=== PATIENT | male | born 1970 | race Caucasian/White ===

== ENCOUNTER 2020-09-27 10:46 | Inpatient (IN) | payer OTHER ==
[2020-09-27] MEDS ORDERED: Diphtheria,Pertussis(Acell),Tetanus Vaccine 0.5 ML Syringe IM ONE (11:35)
--- NOTE | 2020-09-27 11:40 | EDM.PDOC ---
ED HPI GENERAL MEDICAL PROBLEM - General Chief Complaint: Lower Extremity Injury/Pain Stated Complaint: RIGHT SECOND TOE IS BLACK Time Seen by Provider: 09/27/20 11:25 Source of Information: Reports: Patient, Old Records, RN History Limitations: Reports: No Limitations - History of Present Illness INITIAL COMMENTS - FREE TEXT/NARRATIVE: 50 yo male diabetic presents with an injury to his R 2nd toe. He has neuropathy and as a result was not aware until sometime this morning that he had injured it. He thinks when he looked at his feet yesterday it looked normal. Unknown last tetanus. Has not missed any of his home meds including his metoprolol. His BS last night was 185. He was tested yesterday in the clinic for Covid, the results are pending. Covid test done for nonspecific sx's including fever. No one looked at this feet at that time. 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) - Related Data Allergies Allergy/AdvReac Type Severity Reaction Status Date / Time No Known Allergies Allergy Verified 09/27/20 11:23 Home Meds: Home Meds Aspirin 81 mg PO DAILY 09/27/20 [History] Cholecalciferol (Vitamin D3) [Vitamin D] 2,000 unit PO DAILY 09/27/20 [History] Docusate Sodium [Colace] 100 mg PO DAILY 09/27/20 [History] Dulaglutide [Trulicity] 1.5 mg SQ WEEKLY 09/27/20 [History] Furosemide 20 mg PO DAILY 09/27/20 [History] Glimepiride 1 mg PO DAILY 09/27/20 [History] Metoprolol Succinate 200 mg PO DAILY 09/27/20 [History] Spironolactone [Aldactone] 25 mg PO DAILY 09/27/20 [History] allopurinoL [Zyloprim] 100 mg PO DAILY 09/27/20 [History] amLODIPine [Norvasc] 10 mg PO DAILY 09/27/20 [History] atorvaSTATin [Lipitor] 80 mg PO BEDTIME 09/27/20 [History] lisinopriL [Lisinopril] 20 mg PO DAILY 09/27/20 [History] Past Medical History HEENT History: Reports: Impaired Vision Cardiovascular History: Reports: Hypertension, Other (See Below) Other Cardiovascular History: cabg Genitourinary History: Reports: Diabetic Nephropathy, Other (See Below) Other Genitourinary History: ckd Endocrine/Metabolic History: Reports: Diabetes, Type II - Infectious Disease History Infectious Disease History: Reports: Chicken Pox Social & Family History - Tobacco Use Tobacco Use Status *Q: Current Every Day Tobacco User Years of Tobacco use: 30 Packs/Tins Daily: 0.5 Used Tobacco, but Quit: Yes Month/Year Tobacco Last Used: july 2020 - Caffeine Use Caffeine Use: Reports: None - Recreational Drug Use Recreational Drug Use: No Review of Systems - Review of Systems Review Of Systems: See Below Constitutional: Reports: No Symptoms Musculoskeletal: Reports: Other (denies pain) Skin: Reports: Wound (R 2nd toe distally) Neurological: Reports: Numbness (decreased sensation of both feet chronically) ED EXAM, GENERAL - Physical Exam Exam: See Below Exam Limited By: No Limitations General Appearance: Alert, WD/WN, No Apparent Distress Cardiovascular: Tachycardia Extremities: Non-Tender, Other (distal R 2nd toe has a laceration with no active bleeding and ecchymosis of the distal toe. No deformity. ). No: Normal Inspection, Normal Range of Motion Neurological: Alert, Oriented, CN II-XII Intact, Normal Cognition, No Motor/Sensory Deficits Psychiatric: Normal Affect, Normal Mood Skin Exam: Warm, Dry, No Rash, Ecchymosis (distal 1/2 of the R 2nd toe.), Wound/Incision (laceration of the distal R 2nd toe. ). No: Intact, Normal Color ED TRAUMA EXTREMITY PROCEDURES - Additional/Other Procedure(s) Other (Free Text) Procedure(s): Affected R 2nd toe anesth with 5 ml of 2% lido via digital block. The toe was then washed/irrigated with sterile saline. The toe nail was found to be loose and removed. The necrotic skin on the end of the toe was debrided. No purulence was noted. Course - Vital Signs Text/Narrative:: Dr. Jeronimo called @ 1318h Last Recorded V/S: Last Vital Signs Temp 36.4 C 09/27/20 12:26 Pulse 112 H 09/27/20 12:26 Resp 23 H 09/27/20 12:26 BP 135/82 09/27/20 12:26 Pulse Ox 99 09/27/20 12:26 - Orders/Labs/Meds Orders: Active Orders 24 hr Category Date Time Status Cardiac Monitoring [RC] .As Directed Care 09/27/20 11:33 Active Vaccines to be Administered [RC] PER UNIT ROUTINE Care 09/27/20 11:35 Active CULTURE BLOOD [BC] Stat Lab 09/27/20 13:17 Ordered CULTURE BLOOD [BC] Stat Lab 09/27/20 13:18 Ordered Lactated Ringers [Ringers, Lactated] 1,000 ml Med 09/27/20 13:00 Active IV ASDIRECTED Medication Orders Lactated Ringer's (Ringers, Lactated) 1,000 mls @ 1,000 mls/hr IV ASDIRECTED KIRK Last Admin: 09/27/20 12:58 Dose: 1,000 mls/hr Documented by: PERRY Labs: Laboratory Tests 09/27/20 09/27/20 09/27/20 Range/Units 12:32 12:32 12:32 WBC 11.8 H (4.5-11.0) K/uL RBC 5.20 (4.30-5.90) M/uL Hgb 16.0 H (12.0-15.0) g/dL Hct 48.2 (40.0-54.0) % MCV 93 (80-98) fL MCH 31 (27-31) pg MCHC 33 (32-36) % Plt Count 178 (150-400) K/uL Sodium 136 L (140-148) mmol/L Potassium 5.1 (3.6-5.2) mmol/L Chloride 100 (100-108) mmol/L Carbon Dioxide 27 (21-32) mmol/L Anion Gap 14.1 H (5.0-14.0) mmol/L BUN 30 H (7-18) mg/dL Creatinine 2.1 H (0.8-1.3) mg/dL Est Cr Clr Drug Dosing 46.19 mL/min Estimated GFR (MDRD) 34 L (>60) Glucose 246 H (74-106) mg/dL Lactic Acid (0.4-2.0) mmol/L Calcium 9.1 (8.5-10.1) mg/dL Troponin I < 0.017 (0.000-0.056) ng/mL C-Reactive Protein 9.18 H (0.0-0.3) mg/dL 09/27/20 Range/Units 12:49 WBC (4.5-11.0) K/uL RBC (4.30-5.90) M/uL Hgb (12.0-15.0) g/dL Hct (40.0-54.0) % MCV (80-98) fL MCH (27-31) pg MCHC (32-36) % Plt Count (150-400) K/uL Sodium (140-148) mmol/L Potassium (3.6-5.2) mmol/L Chloride (100-108) mmol/L Carbon Dioxide (21-32) mmol/L Anion Gap (5.0-14.0) mmol/L BUN (7-18) mg/dL Creatinine (0.8-1.3) mg/dL Est Cr Clr Drug Dosing mL/min Estimated GFR (MDRD) (>60) Glucose (74-106) mg/dL Lactic Acid 1.9 (0.4-2.0) mmol/L Calcium (8.5-10.1) mg/dL Troponin I (0.000-0.056) ng/mL C-Reactive Protein (0.0-0.3) mg/dL Meds: Medications Generic Name Dose Route Start Last Admin Trade Name Freq PRN Reason Stop Dose Admin Lactated Ringer's 1,000 mls @ 1,000 mls/hr 09/27/20 13:00 09/27/20 12:58 Ringers, Lactated IV 1,000 mls/hr ASDIRECTED KIRK Administration Discontinued Medications Generic Name Dose Route Start Last Admin Trade Name Freq PRN Reason Stop Dose Admin Diphtheria/Tetanus/Acell Pertussis 0.5 ml 09/27/20 11:35 09/27/20 12:02 Diphtheria,Pertussis(Acell),Tetanus Vaccine 0.5 Ml Syringe IM 09/27/20 11:36 0.5 ml .ONCE ONE Administration Lidocaine HCl 5 ml 09/27/20 12:10 09/27/20 12:25 Lidocaine 2% 20 Ml Mdv SUBCUT 09/27/20 12:11 5 ml ONETIME ONE Administration - Radiology Interpretation Free Text/Narrative:: R 2nd toe X-ray-no fx seen Departure - Departure Time of Disposition: 13:40 Disposition: Admitted As Inpatient 66 Condition: Fair Clinical Impression: Infected blister of second toe, Hyperglycemia, Elevated C-reactive protein (CRP) - Discharge Information Referrals: Sonam Cano MD [Primary Care Provider] - Forms: ED Department Discharge Sepsis Event Note (ED) - Focused Exam Vital Signs: Vital Signs Temp Pulse Resp BP Pulse Ox 09/27/20 12:26 36.4 C 112 H 23 H 135/82 99 09/27/20 11:48 112 H 23 H 135/82 99 09/27/20 11:05 36.4 C 122 H 16 103/58 L 100 - My Orders Last 24 Hours: My Active Orders 09/27/20 11:33 Cardiac Monitoring [RC] .As Directed 09/27/20 11:35 Vaccines to be Administered [RC] PER UNIT ROUTINE 09/27/20 13:00 Lactated Ringers [Ringers, Lactated] 1,000 ml IV ASDIRECTED 09/27/20 13:17 CULTURE BLOOD [BC] Stat 09/27/20 13:18 CULTURE BLOOD [BC] Stat - Assessment/Plan Last 24 Hours: My Active Orders 09/27/20 11:33 Cardiac Monitoring [RC] .As Directed 09/27/20 11:35 Vaccines to be Administered [RC] PER UNIT ROUTINE 09/27/20 13:00 Lactated Ringers [Ringers, Lactated] 1,000 ml IV ASDIRECTED 09/27/20 13:17 CULTURE BLOOD [BC] Stat 09/27/20 13:18 CULTURE BLOOD [BC] Stat
[2020-09-27] MEDS ORDERED: Lidocaine 2% 20 ML MDV SUBCUT ONE (12:10)
--- NOTE | 2020-09-27 12:35 | CR ---
Toes Second Digit Rt T6 CLINICAL HISTORY: Pain and swelling and bruising second toe FINDINGS: There is soft tissue swelling of the second toe. No fractures identified. There are diffuse degenerative changes and hammertoe deformities. IMPRESSION: Soft tissue swelling and tissue disruption at the second toe. No underlying bony lesion
[2020-09-27] MEDS ORDERED: Lactated Ringers 1,000 ML IV SCH (13:00)
[2020-09-27] MEDS ORDERED: Bacitracin Oint 1 GM U/D Packet TOP ONE (13:32)
[2020-09-27] MEDS ORDERED: 50% Dextrose in Water 50 ML Syringe IVPUSH PRN (14:14)
[2020-09-27] MEDS ORDERED: Glucagon,Human Recombinant 1 MG Vial IM PRN (14:14)
[2020-09-27] MEDS ORDERED: Insulin Lispro 100 Unit/ML 3 ML KwikPen SUBCUT SCH (14:15)
--- NOTE | 2020-09-27 14:26 | PCM.HP.2 ---
H&P History of Present Illness - General Date of Service: 09/27/20 Admit Problem/Dx: Admission Diagnosis/Problem Admission Diagnosis/Problem Sepsis seoncdary to Right 2nd Toe infection Source of Information: Patient, Family () History Limitations: Reports: No Limitations - History of Present Illness Initial Comments - Free Text/Narative: Mr. Carlton is a 50-year-old male with past medical history significant for uncontrolled diabetes mellitus type 2, essential hypertension, HFrEF Systolic and diastolic, coronary artery disease status post CABG who presents today with mild signs of sepsis including tachycardia and tachypnea. He denies respiratory symptoms, GI symptoms, and urinary symptoms related to infection. He has a lesion and redness on the second toe on the right that appears to be gangrenous with areas of redness that extend to the base of the toe. He admits to having peripheral neuropathy of the feet with no sensation in the tips of the toes, decreased sensation at the bottom of the toes, and good sensation at the metacarpals. He does not look at his feet and does not remember the last time he saw his toe, when in the clinic a few days ago his feet were not examined. He does not remember injuring that toe. He admits that his blood sugars are not controlled at home. He was recently started on Trulicity and he had his most recent shot in this past week. The past few days he has not been feeling well and has had subjective fevers. He is a patient of the [facility] next- door. He is not currently insulin-dependent and only takes oral medications besides the Trulicity once a week injection. He has a history of gout and takes allopurinol. His hypertension and heart failure are moderately controlled and treated with spironolactone, furosemide, lisinopril, metoprolol, and amlodipine. He is taking atorvastatin 80 mg for coronary artery disease tertiary prevention. He admits to having psoriasis but does not take a medication for this. His is at bedside with him and was able to answer some questions. A few days ago he was seen by his clinic for malaise and low-grade fever subjectively at home. At that time he was tested for Covid and those results are pending. In the ER the toe was debrided. He was having tachycardia in the low 110s and tachypnea. His tachycardia may have been falsely low as he takes Toprol 200 mg daily. He was started on IV fluids. An x-ray of his foot was taken that did not show signs of osteomyelitis or subcutaneous infection. He will be admitted for possible sepsis secondary to right second toe gangrene with cellulitis. Onset of Symptoms: Reports: Unknown/Unsure Location: Reports: Lower Extremity, Right - Related Data Allergies/Adverse Reactions: Allergies Allergy/AdvReac Type Severity Reaction Status Date / Time No Known Allergies Allergy Verified 09/27/20 11:23 Home Medications: Home Meds Aspirin 81 mg PO DAILY 09/27/20 [History] Cholecalciferol (Vitamin D3) [Vitamin D] 2,000 unit PO DAILY 09/27/20 [History] Docusate Sodium [Colace] 100 mg PO DAILY 09/27/20 [History] Dulaglutide [Trulicity] 1.5 mg SQ WEEKLY 09/27/20 [History] Furosemide 20 mg PO DAILY 09/27/20 [History] Glimepiride 1 mg PO DAILY 09/27/20 [History] Metoprolol Succinate 200 mg PO DAILY 09/27/20 [History] Spironolactone [Aldactone] 25 mg PO DAILY 09/27/20 [History] allopurinoL [Zyloprim] 100 mg PO DAILY 09/27/20 [History] amLODIPine [Norvasc] 10 mg PO DAILY 09/27/20 [History] atorvaSTATin [Lipitor] 80 mg PO BEDTIME 09/27/20 [History] lisinopriL [Lisinopril] 20 mg PO DAILY 09/27/20 [History] Past Medical History - Past Health History Medical/Surgical History: Denies Medical/Surgical History HEENT History: Reports: Impaired Vision Cardiovascular History: Reports: High Cholesterol, Hypertension, Other (See Below) Other Cardiovascular History: cabg Genitourinary History: Reports: Diabetic Nephropathy, Other (See Below) Other Genitourinary History: ckd Neurological History: Reports: Neuropathy, Peripheral (bilateral lower extremities) Endocrine/Metabolic History: Reports: Diabetes, Type II Dermatologic History: Reports: Psoriasis - Infectious Disease History Infectious Disease History: Reports: Chicken Pox - Past Surgical History Cardiovascular Surgical History: Reports: Coronary Artery Bypass Social & Family History - Tobacco Use Tobacco Use Status *Q: Current Every Day Tobacco User Years of Tobacco use: 1 Packs/Tins Daily: 0.2 Used Tobacco, but Quit: Yes Month/Year Tobacco Last Used: july Second Hand Smoke Exposure: No - Caffeine Use Caffeine Use: Reports: None - Recreational Drug Use Recreational Drug Use: No - Living Situation & Occupation Living situation: Reports: H&P Review of Systems - Review of Systems: Review Of Systems: See Below General: Reports: Fever, Malaise HEENT: Reports: Glasses, Visual Changes (needs to see looper fixer). Denies: Headaches, Sinus Congestion, Sore Throat Pulmonary: Denies: Shortness of Breath, Wheezing, Cough, Sputum Cardiovascular: Denies: Chest Pain, Palpitations, Edema Gastrointestinal: Denies: Abdominal Pain, Constipation, Diarrhea Genitourinary: Denies: Dysuria, Frequency, Urgency Musculoskeletal: Reports: No Symptoms, Other (psoriasis lesions ) Neurological: Denies: Confusion, Headache Exam - Exam Exam: See Below - Vital Signs Vital Signs: Last Vital Signs Temp 100.9 F H 09/27/20 13:43 Pulse 103 H 09/27/20 13:50 Resp 27 H 09/27/20 13:50 BP 98/64 09/27/20 13:50 Pulse Ox 97 09/27/20 13:43 Weight: 232 lb 9.403 oz - Exam Quality Assessment: DVT Prophylaxis. No: Supplemental Oxygen General: Alert, Oriented, Cooperative HEENT: Conjunctiva Clear, EOMI, Hearing Intact, Mucosa Moist & [place] Lungs: Clear to Auscultation, Normal Respiratory Effort, Other (tachypnea) Cardiovascular: Regular Rhythm, Tachycardia GI/Abdominal Exam: Normal Bowel Sounds, Soft, Non-Tender, No Distention Extremities: Other (Right second toe- debrided, has areas of black necrotic tissue, area surrounding the debrided area is purple/red with demarcation at the base of the toe, the other toes of the foot appear within normal limits). No: Pedal Edema Skin: Warm, Dry, Intact, Other (scattered psoriasis lesions on upper and lower extremities) Neurological: Other (has decreased sensation to light touch in the tips of the toes bilaterally gradually increasing to full sensation at the level of the metacarpals) Neuro Extensive - Mental Status: Alert, Oriented x3, Normal Mood/Affect, Normal Cognition Psychiatric: Alert, Normal Affect, Normal Mood - Patient Data Lab Results Last 24 hrs: Laboratory Results - last 24 hr 09/27/20 09/27/20 09/27/20 Range/Units 12:32 12:32 12:32 WBC 11.8 H (4.5-11.0) K/uL RBC 5.20 (4.30-5.90) M/uL Hgb 16.0 H (12.0-15.0) g/dL Hct 48.2 (40.0-54.0) % MCV 93 (80-98) fL MCH 31 (27-31) pg MCHC 33 (32-36) % Plt Count 178 (150-400) K/uL Sodium 136 L (140-148) mmol/L Potassium 5.1 (3.6-5.2) mmol/L Chloride 100 (100-108) mmol/L Carbon Dioxide 27 (21-32) mmol/L Anion Gap 14.1 H (5.0-14.0) mmol/L BUN 30 H (7-18) mg/dL Creatinine 2.1 H (0.8-1.3) mg/dL Est Cr Clr Drug Dosing 46.19 mL/min Estimated GFR (MDRD) 34 L (>60) Glucose 246 H (74-106) mg/dL Lactic Acid (0.4-2.0) mmol/L Calcium 9.1 (8.5-10.1) mg/dL Troponin I < 0.017 (0.000-0.056) ng/mL C-Reactive Protein 9.18 H (0.0-0.3) mg/dL Urine Color (YELLOW) Urine Appearance (CLEAR) Urine pH (5.0-8.0) Ur Specific [place] (1.008-1.030) Urine Protein (NEGATIVE) mg/dL Urine Glucose (UA) (NEGATIVE) mg/dL Urine Ketones (NEGATIVE) mg/dL Urine Occult Blood (NEGATIVE) Urine Nitrite (NEGATIVE) Urine Bilirubin (NEGATIVE) Urine Urobilinogen (0.2-1.0) EU/dL Ur Leukocyte Esterase (NEGATIVE) Urine RBC (0-5) Urine WBC (0-5) Ur Epithelial Cells Amorphous Sediment Urine Bacteria Urine Mucus Urine Other 09/27/20 09/27/20 Range/Units 12:49 13:59 WBC (4.5-11.0) K/uL RBC (4.30-5.90) M/uL Hgb (12.0-15.0) g/dL Hct (40.0-54.0) % MCV (80-98) fL MCH (27-31) pg MCHC (32-36) % Plt Count (150-400) K/uL Sodium (140-148) mmol/L Potassium (3.6-5.2) mmol/L Chloride (100-108) mmol/L Carbon Dioxide (21-32) mmol/L Anion Gap (5.0-14.0) mmol/L BUN (7-18) mg/dL Creatinine (0.8-1.3) mg/dL Est Cr Clr Drug Dosing mL/min Estimated GFR (MDRD) (>60) Glucose (74-106) mg/dL Lactic Acid 1.9 (0.4-2.0) mmol/L Calcium (8.5-10.1) mg/dL Troponin I (0.000-0.056) ng/mL C-Reactive Protein (0.0-0.3) mg/dL Urine Color Yellow (YELLOW) Urine Appearance Slightly cloudy A (CLEAR) Urine pH 5.0 (5.0-8.0) Ur Specific [place] 1.025 (1.008-1.030) Urine Protein Negative (NEGATIVE) mg/dL Urine Glucose (UA) 100 H (NEGATIVE) mg/dL Urine Ketones Negative (NEGATIVE) mg/dL Urine Occult Blood Trace-intact H (NEGATIVE) Urine Nitrite Negative (NEGATIVE) Urine Bilirubin Negative (NEGATIVE) Urine Urobilinogen 0.2 (0.2-1.0) EU/dL Ur Leukocyte Esterase Negative (NEGATIVE) Urine RBC 0-5 (0-5) Urine WBC 5-10 H (0-5) Ur Epithelial Cells Moderate Amorphous Sediment Not seen Urine Bacteria Few Urine Mucus Moderate Urine Other Result Diagrams: 09/27/20 12:32 09/27/20 12:32 Sepsis Event Note - Evaluation Sepsis Screening Result: Possible Sepsis Risk Current Stage of Sepsis: Sepsis Possible Source of Sepsis: Skin/Soft Tissue - Focused Exam Sepsis Event Note Statement: Focused Sepsis Exam Completed Vital Signs: Vital Signs Temp Pulse Resp BP Pulse Ox 09/27/20 13:50 103 H 27 H 98/64 09/27/20 13:43 100.9 F H 101 H 18 106/75 97 09/27/20 13:24 103 H 22 H 96/60 09/27/20 12:26 97.5 F 112 H 23 H 135/82 99 09/27/20 11:48 112 H 23 H 135/82 99 09/27/20 11:05 97.5 F 122 H 16 103/58 L 100 Respiratory Effort Without Exertion: Other (see below) (tachypnea) Heart Sounds: Other (see below) (tachycardia) Pulse Description: 2+ Normal Peripheral Pulse Location: Radial Skin Exam (Focused Sepsis): Unremarkable Date Exam was Performed: 09/27/20 Time Exam was Performed: 15:00 Problem List Initiated/Reviewed/Updated: Yes Orders Last 24hrs: Active Orders 24 hr Category Date Time Status Patient Status [ADT] Routine ADT 09/27/20 13:43 Active Antiembolic Devices [RC] .Routine Care 09/27/20 13:53 Active Bedrest Bedside Commode [RC] ASDIRECTED Care 09/27/20 13:51 Active Blood Glucose Check, Bedside [RC] TIDAC Care 09/27/20 14:12 Ordered Cardiac Monitoring [RC] .As Directed Care 09/27/20 11:33 Active Communication Order [RC] PER UNIT ROUTINE Care 09/27/20 14:12 Ordered Communication Order [RC] PER UNIT ROUTINE Care 09/27/20 14:12 Ordered Communication Order [RC] PRN Care 09/27/20 14:12 Ordered Communication Order [RC] PRN Care 09/27/20 14:12 Ordered Diabetes Education [RC] Click to Edit Care 09/27/20 14:12 Ordered Notify Provider [RC] PRN Care 09/27/20 14:12 Ordered Oxygen Therapy [RC] PRN Care 09/27/20 13:43 Active VTE/DVT Education [RC] Click to Edit Care 09/27/20 13:53 Active Vaccines to be Administered [RC] PER UNIT ROUTINE Care 09/27/20 11:35 Active Vital Signs [RC] Q4H Care 09/27/20 13:43 Active Heart Healthy Diet [DIET] Diet 09/27/20 Dinner Active CULTURE BLOOD [BC] Stat Lab 09/27/20 13:45 Ordered CULTURE BLOOD [BC] Stat Lab 09/27/20 13:45 Ordered Aspirin Med 09/28/20 09:00 Ordered 81 mg PO DAILY Cholecalciferol (Vitamin D3) [Vitamin D] Med 09/28/20 09:00 Ordered 2,000 unit PO DAILY Dextrose 50% in Water Med 09/27/20 14:14 Ordered 50 ml IVPUSH ASDIRECTED PRN Docusate Sodium [Colace] Med 09/28/20 09:00 Ordered 100 mg PO DAILY Furosemide [Lasix] Med 09/28/20 09:00 Ordered 20 mg PO DAILY Glucagon,Human Recombinant [GlucaGen] Med 09/27/20 14:14 Ordered 1 mg IM ASDIRECTED PRN Insulin Glarg,Human.Rec.Analog [LantUS Solostar] Med 09/27/20 21:00 Ordered 30 units SUBCUT BEDTIME Insulin Lispro [HumaLOG] Med 09/27/20 14:15 Ordered See Protocol SUBCUT ASDIRECTED Lactated Ringers [Ringers, Lactated] 1,000 ml Med 09/27/20 13:00 Active IV ASDIRECTED Metoprolol Succinate [Metoprolol Succinate] Med 09/28/20 09:00 Ordered 200 mg PO DAILY Spironolactone [Aldactone] Med 09/28/20 09:00 Ordered 25 mg PO DAILY allopurinoL [Zyloprim] Med 09/28/20 09:00 Ordered 100 mg PO DAILY amLODIPine [Norvasc] Med 09/28/20 09:00 Ordered 10 mg PO DAILY atorvaSTATin [Lipitor] Med 09/27/20 21:00 Ordered 80 mg PO BEDTIME lisinopriL [Prinivil] Med 09/28/20 09:00 Ordered 20 mg PO DAILY DVT/VTE Prophylaxis Reflex [OM.PC] Per Unit Routine Oth 09/27/20 13:53 Ordered Resuscitation Status Routine Resus Stat 09/27/20 13:43 Ordered Medication Orders Allopurinol (Allopurinol 100 Mg Tab) 100 mg PO DAILY [facility]K Amlodipine Besylate (Amlodipine 5 Mg Tab) 10 mg PO DAILY [facility]K Aspirin (Aspirin 81 Mg Tab.Chew) 81 mg PO DAILY [facility] Dextrose/Water (50% Dextrose In Water 50 Ml Syringe) 50 ml IVPUSH ASDIRECTED PRN PRN Reason: Hypoglycemia Docusate Sodium (Docusate Sodium 100 Mg Cap) 100 mg PO DAILY [facility] Furosemide (Furosemide 20 Mg Tab) 20 mg PO DAILY [facility] Glucagon (Glucagon,Human Recombinant 1 Mg Vial) 1 mg IM ASDIRECTED PRN PRN Reason: Hypoglycemia Lactated Ringer's (Ringers, Lactated) 1,000 mls @ 1,000 mls/hr IV ASDIRECTED [facility] Last Admin: 09/27/20 12:58 Dose: 1,000 mls/hr Documented by: PERRY Insulin Glargine (Insulin Glargine,Human Rec. Analog 100 Units/Ml 3 Ml Pen) 30 units SUBCUT BEDTIME KIRK Insulin Human Lispro (Insulin Lispro 100 Unit/Ml 3 Ml Kwikpen) 0 unit SUBCUT ASDIRECTED [facility]; Protocol Lisinopril (Lisinopril 20 Mg Tab) 20 mg PO DAILY [facility] Non-Formulary Medication (Atorvastatin [Lipitor]) 80 mg PO BEDTIME [facility]IRK Non-Formulary Medication (Cholecalciferol (Vitamin D3) [Vitamin D]) 2,000 unit PO DAILY [facility] Non-Formulary Medication (Metoprolol Succinate [Metoprolol Succinate]) 200 mg PO DAILY [facility] Spironolactone (Spironolactone 25 Mg Tab) 25 mg PO DAILY [facility] Assessment/Plan Comment:: Sepsis Secondary to Right 2nd Toe Infection -Had tachycardia and tachypnea on arrival, low-grade fever when moving to the floor -Cefepime 2 mg every 12 and vancomycin per pharmacy protocol were initiated -Fluids were started with normal saline at 100 mL/h-he was given 2 boluses in the ED -Vitals q4h -Blood cultures drawn through the ED, will await results -Getting urine cultures to rule out urinary tract infection, patient does not have signs and symptoms of urinary tract infection -Tylenol as needed for fever Dry gangrene with surrounding cellulitis of the right second toe-likely secondary to injury in the setting of diabetic peripheral neuropathy, possibly secondary to vascular insufficiency in the setting of arterial vascular disease -Management per above, along with management for diabetes mention below -Need dressing change in the morning for the toe Uncontrolled diabetes mellitus type 2 with peripheral neuropathy -Blood sugars in the ED were 246, patient states his blood sugars have not been controlled at home with an average blood sugar of 185 -Home oral medications will be held, in the past week has received a Trulicity injection -Started on 30 units of glargine at bedtime and sliding scale insulin low-dose with meals -Monitoring blood sugars 3 times daily AC -Goal blood sugar is under 180 to facilitate healing -A1c has been ordered and drawn Heart failure with reduced ejection fraction, diastolic and systolic secondary to coronary artery disease status post CABG and hypertensive cardiomyopathy -Last echo available was done on 08/10/2016: EF 40 to 45% which was improved from an echo done on 05/14/2016 showing an EF of 20 to 25% -Continue home medications: Renal lactone 25 mg, frusemide 20 mg, Toprol 200 mg, daily aspirin, senna pill 20 mg -We will monitor for signs and symptoms of fluid overload while on fluids for treatment of sepsis, will obtain chest x-ray if necessary -Continue home med of atorvastatin 80 mg Essential hypertension -Restarting home med amlodipine 10 mg Gout -Restarting home med of allopurinol 100 mg Psoriasis -He has typical lesions on the upper and lower extremities concentrated in the area of the anterior lower leg and hands -He does not take medications for this Obesity class I -BMI: 32 -Will be on an 1800 calorie/day diet for diabetes and obesity CODE STATUS: Full code VTE prophylaxis: SCDs on the right contraindicated, enoxaparin Diet: Heart healthy diet, 1800 bebeto/day GI prophylaxis: Not indicated at this time Plan: Mr. Carlton will be admitted to the floor for sepsis secondary to toe infection. Will be monitored closely and if sepsis progresses he will be moved to the ICU. He will remain on IV antibiotics and IV fluids. Plan for dressing change of toe in the morning. Closely monitor for signs and symptoms of fluid overload. Using long acting insulin at bedtime with low-dose sliding scale insulin to maintain a blood glucose less than 180. Disposition: I anticipate he will go home after hospital stay. Dali Jeronimo DO - Mortality Measure Prognosis:: Good
[2020-09-27] MEDS ORDERED: Acetaminophen 325 MG Tab PO PRN (14:28)
[2020-09-27] MEDS: Sodium Chloride 0.9% 1,000 ML IV SCH (14:53)
[2020-09-27] MEDS ORDERED: Vancomycin 1 GM SDV IV SCH (15:00)
[2020-09-27] MEDS: Cefepime 2 GM in Sodium Chloride 0.9% 50 ML IV SCH (15:05)
[2020-09-27] MEDS ORDERED: VANCOMYCIN IV ONE (16:00)
[2020-09-27] MEDS ORDERED: SODIUM CHLORIDE 0.9% IV ONE (16:00)
[2020-09-27] MEDS: Enoxaparin 40 MG/0.4 ML Syringe SUBCUT SCH (17:32)
[2020-09-27] MEDS ORDERED: Non-Formulary Medication 1 Each (Atorvastatin [Lipitor] 80 MG Tablet) PO SCH (21:00)
[2020-09-27] MEDS: Insulin Glargine,Human Rec. Analog 100 Units/ML 3 ML Pen SUBCUT SCH ×2 (21:22→21:33)
[2020-09-27] MEDS: Insulin Lispro 100 Unit/ML 3 ML KwikPen SUBCUT SCH (21:23)
[2020-09-27] MEDS: atorvaSTATin 20 MG Tab PO SCH (21:25)
[2020-09-28] MEDS: Cefepime 2 GM in Sodium Chloride 0.9% 50 ML IV SCH ×2 (02:37→14:30)
[2020-09-28] MEDS: Vancomycin 1.6 GM in Sodium Chloride 0.9% 250 ML IV SCH ×2 (03:47→16:00)
[2020-09-28] MEDS: Sodium Chloride 0.9% 1,000 ML IV SCH ×2 (03:50→18:15)
[2020-09-28] MEDS: Insulin Lispro 100 Unit/ML 3 ML KwikPen SUBCUT SCH ×4 (07:50→21:29)
[2020-09-28] MEDS: Allopurinol 100 MG Tab PO SCH (08:41)
[2020-09-28] MEDS: Cholecalciferol (Vitamin D3) 25 MCG Tab PO SCH (08:41)
[2020-09-28] MEDS: Docusate Sodium 100 MG Cap PO SCH (08:41)
[2020-09-28] MEDS: Aspirin 81 MG Tab.Chew PO SCH (08:41)
[2020-09-28] MEDS: Metoprolol Succinate 50 MG Tab.ER PO SCH (08:42)
[2020-09-28] MEDS: amLODIPine 5 MG Tab PO SCH (08:42)
[2020-09-28] MEDS: Spironolactone 25 MG Tab PO SCH (08:43)
[2020-09-28] MEDS: Lisinopril 20 MG Tab PO SCH (08:43)
[2020-09-28] MEDS: Furosemide 20 MG Tab PO SCH (08:43)
[2020-09-28] MEDS ORDERED: Non-Formulary Medication 1 Each (Cholecalciferol (Vitamin D3) [Vitamin D] 5,000 UNIT Table PO SCH (09:00)
[2020-09-28] MEDS: Enoxaparin 40 MG/0.4 ML Syringe SUBCUT SCH (16:00)
--- NOTE | 2020-09-28 19:07 | PCM.PN ---
- General Info Date of Service: 09/28/20 Admission Dx/Problem (Free Text): Admission Diagnosis/Problem Admission Diagnosis/Problem Sepsis seoncdary to Right 2nd Toe infection, Bacteremia Subjective Update: Mr. Carlton no events overnight last night. He is no longer experiencing a fever. His toe is less purple and red. He is currently having no complaints. His blood cultures were positive for gram-positive cocci, him and his were counseled on this and I expressed that the antibiotics he is on currently will prevent this from worsening. He was counseled on following up with podiatry when he is discharged. Functional Status: Reports: Pain Controlled, Tolerating Diet - Review of Systems General: Reports: No Symptoms. Denies: Fever, Chills HEENT: Reports: No Symptoms. Denies: Headaches, Visual Changes Pulmonary: Reports: No Symptoms. Denies: Shortness of Breath, Cough Cardiovascular: Reports: No Symptoms. Denies: Chest Pain, Palpitations Gastrointestinal: Reports: No Symptoms. Denies: Abdominal Pain, Constipation, Diarrhea, Nausea, Vomiting Genitourinary: Reports: No Symptoms. Denies: Dysuria, Frequency, Urgency Musculoskeletal: Reports: Other (lesion on left second and fourth toe, right pinky toe is mottled and red) Skin: Reports: No Symptoms Neurological: Reports: No Symptoms. Denies: Confusion, Headache - Patient Data Vitals - Most Recent: Last Vital Signs Temp 99.4 F 09/28/20 15:00 Pulse 90 09/28/20 15:00 Resp 16 09/28/20 15:00 BP 106/54 L 09/28/20 15:00 Pulse Ox 98 09/28/20 15:00 Weight - Most Recent: 232 lb 9.403 oz I&O - Last 24 Hours: Intake & Output 09/28/20 09/28/20 09/28/20 06:59 14:59 22:59 Intake Total 193 1240 Balance 1938 1240 Lab Results Last 24 Hours: Laboratory Results - last 24 hr 09/27/20 09/27/20 09/28/20 Range/Units 19:56 21:16 05:30 WBC 10.1 (4.5-11.0) K/uL RBC 4.60 (4.30-5.90) M/uL Hgb 14.1 (12.0-15.0) g/dL Hct 42.8 (40.0-54.0) % MCV 93 (80-98) fL MCH 31 (27-31) pg MCHC 33 (32-36) % Plt Count 185 (150-400) K/uL Sodium (140-148) mmol/L Potassium (3.6-5.2) mmol/L Chloride (100-108) mmol/L Carbon Dioxide (21-32) mmol/L Anion Gap (5.0-14.0) mmol/L BUN (7-18) mg/dL Creatinine (0.8-1.3) mg/dL Est Cr Clr Drug Dosing mL/min Estimated GFR (MDRD) (>60) Glucose (74-106) mg/dL POC Glucose 173 H (74-106) mg/dL Lactic Acid 1.6 (0.4-2.0) mmol/L Calcium (8.5-10.1) mg/dL 09/28/20 09/28/20 09/28/20 Range/Units 05:30 07:48 11:37 WBC (4.5-11.0) K/uL RBC (4.30-5.90) M/uL Hgb (12.0-15.0) g/dL Hct (40.0-54.0) % MCV (80-98) fL MCH (27-31) pg MCHC (32-36) % Plt Count (150-400) K/uL Sodium 138 L (140-148) mmol/L Potassium 4.3 (3.6-5.2) mmol/L Chloride 104 (100-108) mmol/L Carbon Dioxide 23 (21-32) mmol/L Anion Gap 15.3 H (5.0-14.0) mmol/L BUN 26 H (7-18) mg/dL Creatinine 1.7 H (0.8-1.3) mg/dL Est Cr Clr Drug Dosing 55.14 mL/min Estimated GFR (MDRD) 43 L (>60) Glucose 118 H (74-106) mg/dL POC Glucose 100 128 H (74-106) mg/dL Lactic Acid (0.4-2.0) mmol/L Calcium 8.2 L (8.5-10.1) mg/dL 09/28/20 Range/Units 17:59 WBC (4.5-11.0) K/uL RBC (4.30-5.90) M/uL Hgb (12.0-15.0) g/dL Hct (40.0-54.0) % MCV (80-98) fL MCH (27-31) pg MCHC (32-36) % Plt Count (150-400) K/uL Sodium (140-148) mmol/L Potassium (3.6-5.2) mmol/L Chloride (100-108) mmol/L Carbon Dioxide (21-32) mmol/L Anion Gap (5.0-14.0) mmol/L BUN (7-18) mg/dL Creatinine (0.8-1.3) mg/dL Est Cr Clr Drug Dosing mL/min Estimated GFR (MDRD) (>60) Glucose (74-106) mg/dL POC Glucose 130 H (74-106) mg/dL Lactic Acid (0.4-2.0) mmol/L Calcium (8.5-10.1) mg/dL Kody Results Last 24 Hours: Microbiology 09/27/20 13:45 Aerobic Blood Culture - Preliminary Blood - Arm, Left Anaerobic Blood Culture - Preliminary NO GROWTH AFTER 1 DAY 09/27/20 13:40 Aerobic Blood Culture - Preliminary Blood - Arm, Right NO GROWTH AFTER 1 DAY Anaerobic Blood Culture - Preliminary Med Orders - Current: Current Medications Acetaminophen (Acetaminophen 325 Mg Tab) 650 mg PO Q4H PRN PRN Reason: Fever Last Admin: 09/27/20 14:53 Dose: 650 mg Documented by: Allopurinol (Allopurinol 100 Mg Tab) 100 mg PO DAILY [facility] Last Admin: 09/28/20 08:41 Dose: 100 mg Documented by: Amlodipine Besylate (Amlodipine 5 Mg Tab) 10 mg PO DAILY [facility] Last Admin: 09/28/20 08:42 Dose: 10 mg Documented by: Aspirin (Aspirin 81 Mg Tab.Chew) 81 mg PO DAILY [facility] Last Admin: 09/28/20 08:41 Dose: 81 mg Documented by: Atorvastatin Calcium (Atorvastatin 20 Mg Tab) 80 mg PO BEDTIME [facility] Last Admin: 09/27/20 21:25 Dose: Not Given Documented by: Cholecalciferol (Cholecalciferol (Vitamin D3) 25 Mcg Tab) 50 mcg PO DAILY [facility] Last Admin: 09/28/20 08:41 Dose: 50 mcg Documented by: Dextrose/Water (50% Dextrose In Water 50 Ml Syringe) 50 ml IVPUSH ASDIRECTED PRN PRN Reason: Hypoglycemia Docusate Sodium (Docusate Sodium 100 Mg Cap) 100 mg PO DAILY [facility] Last Admin: 09/28/20 08:41 Dose: 100 mg Documented by: Enoxaparin Sodium (Enoxaparin 40 Mg/0.4 Ml Syringe) 40 mg SUBCUT Q24H [facility] Last Admin: 09/28/20 16:00 Dose: 40 mg Documented by: Furosemide (Furosemide 20 Mg Tab) 20 mg PO DAILY [facility] Last Admin: 09/28/20 08:43 Dose: 20 mg Documented by: Glucagon (Glucagon,Human Recombinant 1 Mg Vial) 1 mg IM ASDIRECTED PRN PRN Reason: Hypoglycemia Cefepime HCl 2 gm/ Sodium (Chloride) 50 mls @ 100 mls/hr IV Q12H [facility] Last Admin: 09/28/20 14:30 Dose: 100 mls/hr Documented by: Sodium Chloride (Normal Saline) 1,000 mls @ 100 mls/hr IV ASDIRECTED [facility] Last Admin: 09/28/20 18:15 Dose: 100 mls/hr Documented by: Vancomycin HCl 1.6 gm/ Sodium (Chloride) 250 mls @ 166.667 mls/hr IV Q12H [facility] Last Admin: 09/28/20 16:00 Dose: 166.667 mls/hr Documented by: Insulin Glargine (Insulin Glargine,Human Rec. Analog 100 Units/Ml 3 Ml Pen) 30 units SUBCUT BEDTIME [facility] Last Admin: 09/27/20 21:33 Dose: 30 units Documented by: Insulin Human Lispro (Insulin Lispro 100 Unit/Ml 3 Ml Kwikpen) 0 unit SUBCUT QIDACANDBED [facility]; Protocol Last Admin: 09/28/20 18:17 Dose: Not Given Documented by: Lisinopril (Lisinopril 20 Mg Tab) 20 mg PO DAILY [facility] Last Admin: 09/28/20 08:43 Dose: 20 mg Documented by: Metoprolol Succinate (Metoprolol Succinate 50 Mg Tab.Er) 200 mg PO DAILY [facility] Last Admin: 09/28/20 08:42 Dose: 200 mg Documented by: Spironolactone (Spironolactone 25 Mg Tab) 25 mg PO DAILY [facility] Last Admin: 09/28/20 08:43 Dose: 25 mg Documented by: Discontinued Medications Bacitracin (Bacitracin Oint 1 Gm U/D Packet) 1 dose TOP ONETIME ONE Stop: 09/27/20 13:33 Last Admin: 09/27/20 13:44 Dose: 1 dose Documented by: Diphtheria/Tetanus/Acell Pertussis (Diphtheria,Pertussis(Acell),Tetanus Vaccine 0.5 Ml Syringe) 0.5 ml IM .ONCE ONE Stop: 09/27/20 11:36 Last Admin: 09/27/20 12:02 Dose: 0.5 ml Documented by: Lactated Ringer's (Ringers, Lactated) 1,000 mls @ 1,000 mls/hr IV ASDIRECTED [facility] Last Admin: 09/27/20 12:58 Dose: 1,000 mls/hr Documented by: Vancomycin HCl 2.1 gm/ Sodium (Chloride) 500 mls @ 250 mls/hr IV ONETIME ONE Stop: 09/27/20 17:59 Last Admin: 09/27/20 16:59 Dose: 250 mls/hr Documented by: Insulin Human Lispro (Insulin Lispro 100 Unit/Ml 3 Ml Kwikpen) 0 unit SUBCUT ASDIRECTED [facility]; Protocol Lidocaine HCl (Lidocaine 2% 20 Ml Mdv) 5 ml SUBCUT ONETIME ONE Stop: 09/27/20 12:11 Last Admin: 09/27/20 12:25 Dose: 5 ml Documented by: Vancomycin HCl (Vancomycin 1 Gm Sdv) 0 gm IV .PHARMACY TO DOSE [facility] Stop: 09/27/20 18:00 - Exam General: Alert, Oriented, Cooperative, No Acute Distress HEENT: Pupils Equal, EOMI, Mucous Membr. Moist/[place] Lungs: Clear to Auscultation, Normal Respiratory Effort Cardiovascular: Regular Rate, Regular Rhythm GI/Abdominal Exam: Normal Bowel Sounds, Soft, Non-Tender, No Distention Back Exam: Normal Inspection Extremities: Other (Large area of black covering the left second toe tip, the toenail is missing and that area is oozing a small amount of blood. There is a dark area that may be possible bruising or possible development of gangrene on the left fourth toe. The pinky toe on the right is mottled and white) Skin: Warm, Dry, Intact Wound/Incisions: Other (The wound is currently uncovered on the second toe, some ooze of blood) Neurological: No New Focal Deficit Psy/Mental Status: Alert, Normal Affect, Normal Mood - Patient Data Lab Results Last 24 hrs: Laboratory Results - last 24 hr 09/27/20 09/27/20 09/28/20 Range/Units 19:56 21:16 05:30 WBC 10.1 (4.5-11.0) K/uL RBC 4.60 (4.30-5.90) M/uL Hgb 14.1 (12.0-15.0) g/dL Hct 42.8 (40.0-54.0) % MCV 93 (80-98) fL MCH 31 (27-31) pg MCHC 33 (32-36) % Plt Count 185 (150-400) K/uL Sodium (140-148) mmol/L Potassium (3.6-5.2) mmol/L Chloride (100-108) mmol/L Carbon Dioxide (21-32) mmol/L Anion Gap (5.0-14.0) mmol/L BUN (7-18) mg/dL Creatinine (0.8-1.3) mg/dL Est Cr Clr Drug Dosing mL/min Estimated GFR (MDRD) (>60) Glucose (74-106) mg/dL POC Glucose 173 H (74-106) mg/dL Lactic Acid 1.6 (0.4-2.0) mmol/L Calcium (8.5-10.1) mg/dL 09/28/20 09/28/20 09/28/20 Range/Units 05:30 07:48 11:37 WBC (4.5-11.0) K/uL RBC (4.30-5.90) M/uL Hgb (12.0-15.0) g/dL Hct (40.0-54.0) % MCV (80-98) fL MCH (27-31) pg MCHC (32-36) % Plt Count (150-400) K/uL Sodium 138 L (140-148) mmol/L Potassium 4.3 (3.6-5.2) mmol/L Chloride 104 (100-108) mmol/L Carbon Dioxide 23 (21-32) mmol/L Anion Gap 15.3 H (5.0-14.0) mmol/L BUN 26 H (7-18) mg/dL Creatinine 1.7 H (0.8-1.3) mg/dL Est Cr Clr Drug Dosing 55.14 mL/min Estimated GFR (MDRD) 43 L (>60) Glucose 118 H (74-106) mg/dL POC Glucose 100 128 H (74-106) mg/dL Lactic Acid (0.4-2.0) mmol/L Calcium 8.2 L (8.5-10.1) mg/dL 09/28/20 Range/Units 17:59 WBC (4.5-11.0) K/uL RBC (4.30-5.90) M/uL Hgb (12.0-15.0) g/dL Hct (40.0-54.0) % MCV (80-98) fL MCH (27-31) pg MCHC (32-36) % Plt Count (150-400) K/uL Sodium (140-148) mmol/L Potassium (3.6-5.2) mmol/L Chloride (100-108) mmol/L Carbon Dioxide (21-32) mmol/L Anion Gap (5.0-14.0) mmol/L BUN (7-18) mg/dL Creatinine (0.8-1.3) mg/dL Est Cr Clr Drug Dosing mL/min Estimated GFR (MDRD) (>60) Glucose (74-106) mg/dL POC Glucose 130 H (74-106) mg/dL Lactic Acid (0.4-2.0) mmol/L Calcium (8.5-10.1) mg/dL Result Diagrams: 09/28/20 05:30 09/28/20 05:30 Kody Results Last 24 hrs: Microbiology 09/27/20 13:45 Aerobic Blood Culture - Preliminary Blood - Arm, Left Anaerobic Blood Culture - Preliminary NO GROWTH AFTER 1 DAY 09/27/20 13:40 Aerobic Blood Culture - Preliminary Blood - Arm, Right NO GROWTH AFTER 1 DAY Anaerobic Blood Culture - Preliminary Sepsis Event Note - Evaluation Sepsis Screening Result: No Definite Risk Current Stage of Sepsis: Ruled Out Reason for Ruling Out Sepsis: He is no longer showing signs and symptoms of sepsis however he was in sepsis when he arrived Possible Source of Sepsis: Skin/Soft Tissue - Focused Exam Vital Signs: Vital Signs Temp Pulse Pulse Resp BP BP Pulse Ox 09/28/20 15:00 99.4 F 90 16 106/54 L 98 09/28/20 10:55 99.8 F 84 16 99/62 96 09/28/20 08:43 111/69 09/28/20 08:42 96 111/09/28/20 07:51 99.0 F 96 16 95 Respiratory Effort Without Exertion: Other (see below) (He is having no respiratory difficulty) Heart Sounds: Other (see below) (He has a regular rate and rhythm) Capillary Refill, Detail: Greater than (>) 2 Seconds (This is a chronic condition) Skin Exam (Focused Sepsis): Normal Turgor Date Exam was Performed: 09/28/20 Time Exam was Performed: 11:00 - Problem List Review Problem List Initiated/Reviewed/Updated: Yes - My Orders Last 24 Hours: My Active Orders 09/27/20 21:00 Insulin Glarg,Human.Rec.Analog [LantUS Solostar] 30 units SUBCUT BEDTIME atorvaSTATin [Lipitor] 80 mg PO BEDTIME 09/27/20 21:15 Insulin Lispro [HumaLOG] See Protocol SUBCUT QIDACANDBED 09/28/20 04:00 Vancomycin 1.6 gm Sodium Chloride 0.9% [Normal Saline] 250 ml IV Q12H 09/28/20 09:00 Aspirin 81 mg PO DAILY Cholecalciferol (Vitamin D3) [Vitamin D3] 50 mcg PO DAILY Docusate Sodium [Colace] 100 mg PO DAILY Furosemide [Lasix] 20 mg PO DAILY Metoprolol Succinate [Toprol XL] 200 mg PO DAILY Spironolactone [Aldactone] 25 mg PO DAILY allopurinoL [Zyloprim] 100 mg PO DAILY amLODIPine [Norvasc] 10 mg PO DAILY lisinopriL [Prinivil] 20 mg PO DAILY 09/28/20 09:38 Blood Glucose Check, Bedside [RC] TIDAC 09/28/20 21:00 GLUCOSE POC LAB TO COLLECT JPM [POC] DAILY GLUCOSE POC LAB TO COLLECT JPM [POC] QIDACANDBED 09/29/20 07:30 GLUCOSE POC LAB TO COLLECT JPM [POC] QIDACANDBED 09/29/20 11:30 GLUCOSE POC LAB TO COLLECT JPM [POC] QIDACANDBED 09/29/20 16:30 GLUCOSE POC LAB TO COLLECT JPM [POC] QIDACANDBED 09/29/20 21:00 GLUCOSE POC LAB TO COLLECT JPM [POC] QIDACANDBED 09/30/20 07:30 GLUCOSE POC LAB TO COLLECT JPM [POC] QIDACANDBED 09/30/20 11:30 GLUCOSE POC LAB TO COLLECT JPM [POC] QIDACANDBED 09/30/20 16:30 GLUCOSE POC LAB TO COLLECT JPM [POC] QIDACANDBED 09/30/20 21:00 GLUCOSE POC LAB TO COLLECT JPM [POC] QIDACANDBED 10/01/20 07:30 GLUCOSE POC LAB TO COLLECT JPM [POC] QIDACANDBED 10/01/20 11:30 GLUCOSE POC LAB TO COLLECT JPM [POC] QIDACANDBED 10/01/20 16:30 GLUCOSE POC LAB TO COLLECT JPM [POC] QIDACANDBED 10/01/20 21:00 GLUCOSE POC LAB TO COLLECT JPM [POC] QIDACANDBED - Plan Plan:: Gram-positive cocci bacteremia with resolved sepsis Secondary to 2nd Toe cellulitis -Had tachycardia and tachypnea on arrival, low-grade fever when moving to the floor -Cefepime 2 mg every 12 and vancomycin per pharmacy protocol -Fluids: normal saline at 100 mL/h-he was given 2 boluses in the ED -Vitals q4h -Blood cultures drawn through the ED-showing preliminary Gram positive cocci growth, will taper antibiotics based on sensitivities -Tylenol as needed for fever Dry gangrene with surrounding cellulitis of the second toe-likely secondary to i njury in the setting of diabetic peripheral neuropathy, possibly secondary to vascular insufficiency in the setting of arterial vascular disease -Management per above, along with management for diabetes mention below -Dressing has been removed to allow the toe to dry -There is concern for dry gangrene developing in the fourth toe, as well as the pinky toe Acute kidney injury on chronic kidney disease likely stage IIIa -That he has been told he does have chronic kidney disease -Creatinine is improving we will continue to monitor, creatinine on admission was 2.1, today 1.7 Uncontrolled diabetes mellitus type 2 with peripheral neuropathy -Blood sugars in the ED were 246, patient states his blood sugars have not been controlled at home with an average blood sugar of 185 -Home oral medications will be held, in the past week has received a Trulicity injection -30 units of glargine at bedtime and sliding scale insulin low-dose with meals -Monitoring blood sugars 3 times daily AC -Goal blood sugar is under 180 to facilitate healing, he has been meeting this goal -A1c has been ordered and drawn Heart failure with reduced ejection fraction, diastolic and systolic secondary to coronary artery disease status post CABG and hypertensive cardiomyopathy -Last echo available was done on 08/10/2016: EF 40 to 45% which was improved from an echo done on 05/14/2016 showing an EF of 20 to 25% -Continue home medications: Renal lactone 25 mg, frusemide 20 mg, Toprol 200 mg, daily aspirin, senna pill 20 mg -We will monitor for signs and symptoms of fluid overload while on fluids for treatment of sepsis, will obtain chest x-ray if necessary -Continue home med of atorvastatin 80 mg Essential hypertension -Restarting home med amlodipine 10 mg Gout -Restarting home med of allopurinol 100 mg Psoriasis -He has typical lesions on the upper and lower extremities concentrated in the area of the anterior lower leg and hands -He does not take medications for this Obesity class I -BMI: 32 -Will be on an 1800 calorie/day diet for diabetes and obesity CODE STATUS: Full code VTE prophylaxis: SCDs on the right contraindicated, enoxaparin Diet: Heart healthy diet, 1800 bebeto/day GI prophylaxis: Not indicated at this time Plan: We will continue to treat with IV antibiotics and fluids. We will taper the antibiotics based on the blood culture results. We will continue to monitor the 2 other toes for signs and symptoms of gangrene. He does have a podiatry appointment set up outpatient for discharge. Disposition: I anticipate he will go home after hospital stay. Dali Jeronimo DO
[2020-09-28] MEDS: Insulin Glargine,Human Rec. Analog 100 Units/ML 3 ML Pen SUBCUT SCH (21:30)
[2020-09-28] MEDS: atorvaSTATin 20 MG Tab PO SCH (21:34)
[2020-09-29] MEDS: Cefepime 2 GM in Sodium Chloride 0.9% 50 ML IV SCH ×2 (03:28→14:28)
[2020-09-29] MEDS: Vancomycin 1.6 GM in Sodium Chloride 0.9% 250 ML IV SCH ×3 (04:28→21:39)
[2020-09-29] MEDS: Sodium Chloride 0.9% 1,000 ML IV SCH ×2 (06:14→14:29)
[2020-09-29] MEDS: amLODIPine 5 MG Tab PO SCH (08:17)
[2020-09-29] MEDS: Spironolactone 25 MG Tab PO SCH (08:17)
[2020-09-29] MEDS: Lisinopril 20 MG Tab PO SCH (08:17)
[2020-09-29] MEDS: Furosemide 20 MG Tab PO SCH (08:17)
[2020-09-29] MEDS: Cholecalciferol (Vitamin D3) 25 MCG Tab PO SCH (08:17)
[2020-09-29] MEDS: Allopurinol 100 MG Tab PO SCH (08:17)
[2020-09-29] MEDS: Insulin Lispro 100 Unit/ML 3 ML KwikPen SUBCUT SCH ×4 (08:18→21:36)
[2020-09-29] MEDS: Metoprolol Succinate 50 MG Tab.ER PO SCH (08:18)
[2020-09-29] MEDS: Aspirin 81 MG Tab.Chew PO SCH (08:18)
[2020-09-29] MEDS: Docusate Sodium 100 MG Cap PO SCH (08:18)
[2020-09-29] MEDS ORDERED: Vancomycin 1.6 GM in Sodium Chloride 0.9% 250 ML IV SCH (17:30)
[2020-09-29] MEDS: Enoxaparin 40 MG/0.4 ML Syringe SUBCUT SCH (17:32)
[2020-09-29] MEDS: atorvaSTATin 20 MG Tab PO SCH (20:21)
--- NOTE | 2020-09-29 21:30 | PCM.PN ---
- General Info Date of Service: 09/29/20 Admission Dx/Problem (Free Text): Admission Diagnosis/Problem Admission Diagnosis/Problem Sepsis seoncdary to Right 2nd Toe infection Subjective Update: is doing well today and has no complaints nor did he have any events overnight. I spoke with him and his about the plan to keep him until Friday so the podiatry can see him and patient and he can get an echo and they are on board with this plan. He has no new symptoms at this time and his toe is looking better. Functional Status: Reports: Pain Controlled, Tolerating Diet, Ambulating, Urinating - Review of Systems General: Reports: No Symptoms, Appetite. Denies: Fever, Chills HEENT: Reports: No Symptoms, Headaches, Visual Changes Pulmonary: Reports: No Symptoms. Denies: Shortness of Breath, Cough Cardiovascular: Reports: No Symptoms. Denies: Chest Pain, Palpitations Gastrointestinal: Reports: No Symptoms. Denies: Abdominal Pain, Constipation, Diarrhea Genitourinary: Reports: No Symptoms. Denies: Dysuria, Frequency Skin: Reports: No Symptoms Neurological: Reports: No Symptoms. Denies: Dizziness, Headache Psychiatric: Reports: No Symptoms. Denies: Confusion - Patient Data Vitals - Most Recent: Last Vital Signs Temp 98 F 09/29/20 20:01 Pulse 73 09/29/20 20:01 Resp 16 09/29/20 20:01 BP 119/60 09/29/20 20:01 Pulse Ox 95 09/29/20 20:01 Weight - Most Recent: 232 lb 9.403 oz I&O - Last 24 Hours: Intake & Output 09/29/20 09/29/20 09/29/20 06:59 14:59 22:59 Intake Total 300 4631 Balance 300 4631 Lab Results Last 24 Hours: Laboratory Results - last 24 hr 09/29/20 09/29/20 09/29/20 Range/Units 05:48 05:48 07:32 WBC 11.5 H (4.5-11.0) K/uL RBC 4.62 (4.30-5.90) M/uL Hgb 14.0 (12.0-15.0) g/dL Hct 43.4 (40.0-54.0) % MCV 94 (80-98) fL MCH 30 (27-31) pg MCHC 32 (32-36) % Plt Count 187 (150-400) K/uL Sodium 138 L (140-148) mmol/L Potassium 4.2 (3.6-5.2) mmol/L Chloride 104 (100-108) mmol/L Carbon Dioxide 23 (21-32) mmol/L Anion Gap 15.2 H (5.0-14.0) mmol/L BUN 22 H (7-18) mg/dL Creatinine 1.5 H (0.8-1.3) mg/dL Est Cr Clr Drug Dosing 62.49 mL/min Estimated GFR (MDRD) 50 L (>60) Glucose 106 (74-106) mg/dL POC Glucose 94 (74-106) mg/dL Calcium 8.7 (8.5-10.1) mg/dL Vancomycin Trough (10.0-20.0) ug/mL 09/29/20 09/29/20 09/29/20 Range/Units 11:32 16:25 16:33 WBC (4.5-11.0) K/uL RBC (4.30-5.90) M/uL Hgb (12.0-15.0) g/dL Hct (40.0-54.0) % MCV (80-98) fL MCH (27-31) pg MCHC (32-36) % Plt Count (150-400) K/uL Sodium (140-148) mmol/L Potassium (3.6-5.2) mmol/L Chloride (100-108) mmol/L Carbon Dioxide (21-32) mmol/L Anion Gap (5.0-14.0) mmol/L BUN (7-18) mg/dL Creatinine (0.8-1.3) mg/dL Est Cr Clr Drug Dosing mL/min Estimated GFR (MDRD) (>60) Glucose (74-106) mg/dL POC Glucose 140 H 126 H (74-106) mg/dL Calcium (8.5-10.1) mg/dL Vancomycin Trough 23.7 H (10.0-20.0) ug/mL Kody Results Last 24 Hours: Microbiology 09/27/20 13:45 Aerobic Blood Culture - Preliminary Blood - Arm, Left Anaerobic Blood Culture - Preliminary NO GROWTH AFTER 2 DAYS 09/27/20 13:40 Aerobic Blood Culture - Preliminary Blood - Arm, Right NO GROWTH AFTER 2 DAYS Anaerobic Blood Culture - Preliminary Med Orders - Current: Current Medications Acetaminophen (Acetaminophen 325 Mg Tab) 650 mg PO Q4H PRN PRN Reason: Fever Last Admin: 09/27/20 14:53 Dose: 650 mg Documented by: Allopurinol (Allopurinol 100 Mg Tab) 100 mg PO DAILY [facility] Last Admin: 09/29/20 08:17 Dose: 100 mg Documented by: Amlodipine Besylate (Amlodipine 5 Mg Tab) 10 mg PO DAILY [facility] Last Admin: 09/29/20 08:17 Dose: 10 mg Documented by: Aspirin (Aspirin 81 Mg Tab.Chew) 81 mg PO DAILY [facility] Last Admin: 09/29/20 08:18 Dose: 81 mg Documented by: Atorvastatin Calcium (Atorvastatin 20 Mg Tab) 80 mg PO BEDTIME [facility] Last Admin: 09/29/20 20:21 Dose: 80 mg Documented by: Cholecalciferol (Cholecalciferol (Vitamin D3) 25 Mcg Tab) 50 mcg PO DAILY [facility] Last Admin: 09/29/20 08:17 Dose: 50 mcg Documented by: Dextrose/Water (50% Dextrose In Water 50 Ml Syringe) 50 ml IVPUSH ASDIRECTED PRN PRN Reason: Hypoglycemia Docusate Sodium (Docusate Sodium 100 Mg Cap) 100 mg PO DAILY [facility] Last Admin: 09/29/20 08:18 Dose: 100 mg Documented by: Enoxaparin Sodium (Enoxaparin 40 Mg/0.4 Ml Syringe) 40 mg SUBCUT Q24H [facility] Last Admin: 09/29/20 17:32 Dose: 40 mg Documented by: Furosemide (Furosemide 20 Mg Tab) 20 mg PO DAILY [facility] Last Admin: 09/29/20 08:17 Dose: 20 mg Documented by: Glucagon (Glucagon,Human Recombinant 1 Mg Vial) 1 mg IM ASDIRECTED PRN PRN Reason: Hypoglycemia Cefepime HCl 2 gm/ Sodium (Chloride) 50 mls @ 100 mls/hr IV Q12H [facility] Last Admin: 09/29/20 14:28 Dose: 100 mls/hr Documented by: Sodium Chloride (Normal Saline) 1,000 mls @ 100 mls/hr IV ASDIRECTED [facility] Last Admin: 09/29/20 14:29 Dose: 100 mls/hr Documented by: Vancomycin HCl 1.6 gm/ Sodium (Chloride) 250 mls @ 166.667 mls/hr IV Q18H [facility] Insulin Glargine (Insulin Glargine,Human Rec. Analog 100 Units/Ml 3 Ml Pen) 30 units SUBCUT BEDTIME [facility] Last Admin: 09/28/20 21:30 Dose: 30 units Documented by: Insulin Human Lispro (Insulin Lispro 100 Unit/Ml 3 Ml Kwikpen) 0 unit SUBCUT QIDACANDBED [facility]; Protocol Last Admin: 09/29/20 16:36 Dose: Not Given Documented by: Lisinopril (Lisinopril 20 Mg Tab) 20 mg PO DAILY [facility] Last Admin: 09/29/20 08:17 Dose: 20 mg Documented by: Metoprolol Succinate (Metoprolol Succinate 50 Mg Tab.Er) 200 mg PO DAILY [facility] Last Admin: 09/29/20 08:18 Dose: 200 mg Documented by: Spironolactone (Spironolactone 25 Mg Tab) 25 mg PO DAILY [facility] Last Admin: 09/29/20 08:17 Dose: 25 mg Documented by: Discontinued Medications Bacitracin (Bacitracin Oint 1 Gm U/D Packet) 1 dose TOP ONETIME ONE Stop: 09/27/20 13:33 Last Admin: 09/27/20 13:44 Dose: 1 dose Documented by: Diphtheria/Tetanus/Acell Pertussis (Diphtheria,Pertussis(Acell),Tetanus Vaccine 0.5 Ml Syringe) 0.5 ml IM .ONCE ONE Stop: 09/27/20 11:36 Last Admin: 09/27/20 12:02 Dose: 0.5 ml Documented by: Lactated Ringer's (Ringers, Lactated) 1,000 mls @ 1,000 mls/hr IV ASDIRECTED [facility] Last Admin: 09/27/20 12:58 Dose: 1,000 mls/hr Documented by: Vancomycin HCl 2.1 gm/ Sodium (Chloride) 500 mls @ 250 mls/hr IV ONETIME ONE Stop: 09/27/20 17:59 Last Admin: 09/27/20 16:59 Dose: 250 mls/hr Documented by: Vancomycin HCl 1.6 gm/ Sodium (Chloride) 250 mls @ 166.667 mls/hr IV Q12H [facility] Last Admin: 09/29/20 17:28 Dose: Not Given Documented by: Insulin Human Lispro (Insulin Lispro 100 Unit/Ml 3 Ml Kwikpen) 0 unit SUBCUT ASDIRECTED [facility]; Protocol Lidocaine HCl (Lidocaine 2% 20 Ml Mdv) 5 ml SUBCUT ONETIME ONE Stop: 09/27/20 12:11 Last Admin: 09/27/20 12:25 Dose: 5 ml Documented by: Vancomycin HCl (Vancomycin 1 Gm Sdv) 0 gm IV .PHARMACY TO DOSE [facility] Stop: 09/27/20 18:00 - Exam General: Alert, Oriented, Cooperative, No Acute Distress HEENT: Pupils Equal, EOMI, Mucous Membr. Moist/[place] Lungs: Clear to Auscultation, Normal Respiratory Effort Cardiovascular: Regular Rate, Regular Rhythm GI/Abdominal Exam: Normal Bowel Sounds, Soft, Non-Tender, No Distention, No Mass Extremities: Other (Left second toe is gangrenous, left fourth toe is bruised or early gangrenous, right pinky toe is mottled and has patches of white) Skin: Warm, Dry, Intact Neurological: No New Focal Deficit Psy/Mental Status: Alert, Normal Affect, Normal Mood - Patient Data Lab Results Last 24 hrs: Laboratory Results - last 24 hr 09/29/20 09/29/20 09/29/20 Range/Units 05:48 05:48 07:32 WBC 11.5 H (4.5-11.0) K/uL RBC 4.62 (4.30-5.90) M/uL Hgb 14.0 (12.0-15.0) g/dL Hct 43.4 (40.0-54.0) % MCV 94 (80-98) fL MCH 30 (27-31) pg MCHC 32 (32-36) % Plt Count 187 (150-400) K/uL Sodium 138 L (140-148) mmol/L Potassium 4.2 (3.6-5.2) mmol/L Chloride 104 (100-108) mmol/L Carbon Dioxide 23 (21-32) mmol/L Anion Gap 15.2 H (5.0-14.0) mmol/L BUN 22 H (7-18) mg/dL Creatinine 1.5 H (0.8-1.3) mg/dL Est Cr Clr Drug Dosing 62.49 mL/min Estimated GFR (MDRD) 50 L (>60) Glucose 106 (74-106) mg/dL POC Glucose 94 (74-106) mg/dL Calcium 8.7 (8.5-10.1) mg/dL Vancomycin Trough (10.0-20.0) ug/mL 09/29/20 09/29/20 09/29/20 Range/Units 11:32 16:25 16:33 WBC (4.5-11.0) K/uL RBC (4.30-5.90) M/uL Hgb (12.0-15.0) g/dL Hct (40.0-54.0) % MCV (80-98) fL MCH (27-31) pg MCHC (32-36) % Plt Count (150-400) K/uL Sodium (140-148) mmol/L Potassium (3.6-5.2) mmol/L Chloride (100-108) mmol/L Carbon Dioxide (21-32) mmol/L Anion Gap (5.0-14.0) mmol/L BUN (7-18) mg/dL Creatinine (0.8-1.3) mg/dL Est Cr Clr Drug Dosing mL/min Estimated GFR (MDRD) (>60) Glucose (74-106) mg/dL POC Glucose 140 H 126 H (74-106) mg/dL Calcium (8.5-10.1) mg/dL Vancomycin Trough 23.7 H (10.0-20.0) ug/mL Result Diagrams: 09/29/20 05:48 09/29/20 05:48 Kody Results Last 24 hrs: Microbiology 09/27/20 13:45 Aerobic Blood Culture - Preliminary Blood - Arm, Left Anaerobic Blood Culture - Preliminary NO GROWTH AFTER 2 DAYS 09/27/20 13:40 Aerobic Blood Culture - Preliminary Blood - Arm, Right NO GROWTH AFTER 2 DAYS Anaerobic Blood Culture - Preliminary Sepsis Event Note - Evaluation Sepsis Screening Result: No Definite Risk - Focused Exam Vital Signs: Vital Signs Temp Pulse Resp BP Pulse Ox 09/29/20 20:01 98 F 73 16 119/60 95 09/29/20 15:20 98.5 F 86 16 121/64 98 09/29/20 11:10 98.3 F 88 16 109/64 98 - Problem List Review Problem List Initiated/Reviewed/Updated: Yes - My Orders Last 24 Hours: My Active Orders 09/28/20 21:00 GLUCOSE POC LAB TO COLLECT JPM [POC] QIDACANDBED 09/29/20 14:45 Echo Comp wo Cont [US] Routine 09/29/20 21:00 GLUCOSE POC LAB TO COLLECT JPM [POC] QIDACANDBED 09/29/20 22:00 Vancomycin 1.6 gm Sodium Chloride 0.9% [Normal Saline] 250 ml IV Q18H 09/30/20 05:00 BASIC METABOLIC PANEL,BMP [CHEM] Routine CBC W/O DIFF,HEMOGRAM [HEME] Routine 09/30/20 07:30 GLUCOSE POC LAB TO COLLECT JPM [POC] QIDACANDBED 09/30/20 11:30 GLUCOSE POC LAB TO COLLECT JPM [POC] QIDACANDBED 09/30/20 16:30 GLUCOSE POC LAB TO COLLECT JPM [POC] QIDACANDBED 09/30/20 21:00 GLUCOSE POC LAB TO COLLECT JPM [POC] QIDACANDBED 10/01/20 07:30 GLUCOSE POC LAB TO COLLECT JPM [POC] QIDACANDBED 10/01/20 11:30 GLUCOSE POC LAB TO COLLECT JPM [POC] QIDACANDBED 10/01/20 16:30 GLUCOSE POC LAB TO COLLECT JPM [POC] QIDACANDBED 10/01/20 21:00 GLUCOSE POC LAB TO COLLECT JPM [POC] QIDACANDBED 10/02/20 14:45 Echo Comp wo Cont [US] Routine - Plan Plan:: Gram-positive cocci bacteremia with resolved sepsis Secondary to 2nd Toe cellulitis -Had tachycardia and tachypnea on arrival, low-grade fever when moving to the floor -Cefepime 2 mg every 12 and vancomycin per pharmacy protocol -Fluids: normal saline at 100 mL/h-he was given 2 boluses in the ED -Vitals q4h -Blood cultures drawn through the ED-showing preliminary Gram positive cocci growth, will taper antibiotics based on sensitivities -Tylenol as needed for fever Dry gangrene with surrounding cellulitis of the second toe-likely secondary to injury in the setting of diabetic peripheral neuropathy, possibly secondary to vascular insufficiency in the setting of arterial vascular disease -Management per above, along with management for diabetes mention below -There is concern for dry gangrene developing in the fourth toe, as well as the pinky toe Acute kidney injury on chronic kidney disease likely stage IIIa -That he has been told he does have chronic kidney disease -Creatinine is improving we will continue to monitor Uncontrolled diabetes mellitus type 2 with peripheral neuropathy -Blood sugars in the ED were 246, patient states his blood sugars have not been controlled at home with an average blood sugar of 185 -Home oral medications will be held, in the past week has received a Trulicity injection -30 units of glargine at bedtime and sliding scale insulin low-dose with meals -Monitoring blood sugars 3 times daily AC -Goal blood sugar is under 180 to facilitate healing, he has been meeting this goal -A1c has been ordered and drawn Heart failure with reduced ejection fraction, diastolic and systolic secondary to coronary artery disease status post CABG and hypertensive cardiomyopathy -Last echo available was done on 08/10/2016: EF 40 to 45% which was improved from an echo done on 05/14/2016 showing an EF of 20 to 25% -Continue home medications: Renal lactone 25 mg, frusemide 20 mg, Toprol 200 mg, daily aspirin, senna pill 20 mg -We will monitor for signs and symptoms of fluid overload while on fluids for treatment of sepsis, will obtain chest x-ray if necessary -Continue home med of atorvastatin 80 mg Essential hypertension -Restarting home med amlodipine 10 mg Gout -Restarting home med of allopurinol 100 mg Psoriasis -He has typical lesions on the upper and lower extremities concentrated in the area of the anterior lower leg and hands -He does not take medications for this Obesity class I -BMI: 32 -Will be on an 1800 calorie/day diet for diabetes and obesity CODE STATUS: Full code VTE prophylaxis: SCDs on the right contraindicated, enoxaparin Diet: Heart healthy diet, 1800 bebeto/day GI prophylaxis: Not indicated at this time Plan: We will continue to treat with IV antibiotics and fluids. Patient and his agreed to stay until Friday to have podiatry see them inpatient and formulate a plan for outpatient care. He will also have an echo done on Friday as he was septic with an positive cocci growing in 1 tube of blood cultures drawn from the ED. Disposition: I anticipate he will go home after hospital stay. Dali Jeronimo DO
[2020-09-29] MEDS: Insulin Glargine,Human Rec. Analog 100 Units/ML 3 ML Pen SUBCUT SCH (21:35)
[2020-09-30] MEDS: Cefepime 2 GM in Sodium Chloride 0.9% 50 ML IV SCH ×2 (02:59→16:03)
[2020-09-30] MEDS: Insulin Lispro 100 Unit/ML 3 ML KwikPen SUBCUT SCH ×4 (08:34→21:18)
[2020-09-30] MEDS: Cholecalciferol (Vitamin D3) 25 MCG Tab PO SCH (08:35)
[2020-09-30] MEDS: Furosemide 20 MG Tab PO SCH (08:35)
[2020-09-30] MEDS: Docusate Sodium 100 MG Cap PO SCH (08:35)
[2020-09-30] MEDS: Lisinopril 20 MG Tab PO SCH (08:35)
[2020-09-30] MEDS: amLODIPine 5 MG Tab PO SCH (08:36)
[2020-09-30] MEDS: Metoprolol Succinate 50 MG Tab.ER PO SCH (08:36)
[2020-09-30] MEDS: Allopurinol 100 MG Tab PO SCH (08:37)
[2020-09-30] MEDS: Spironolactone 25 MG Tab PO SCH (08:37)
[2020-09-30] MEDS: Aspirin 81 MG Tab.Chew PO SCH (08:45)
--- NOTE | 2020-09-30 12:55 | PCM.PN ---
- General Info Date of Service: 09/30/20 Admission Dx/Problem (Free Text): Admission Diagnosis/Problem Admission Diagnosis/Problem Sepsis seoncdary to Right 2nd Toe infection, MRSA Bacteremia Subjective Update: Mr. Carlton is doing well today and has no complaints. He had no issues overnight. I did have a conversation with him about the MRSA positive blood cultures. We discussed the need for IV vancomycin for 14 days as well as the echocardiogram. He is on board with all of this. I did explain to him that he will need to get a PICC line on Friday. Is okay with this as well. Functional Status: Reports: Tolerating Diet, Ambulating, Urinating. Denies: New Symptoms - Review of Systems General: Reports: No Symptoms, Appetite. Denies: Fever, Weakness, Fatigue, Malaise, Chills HEENT: Reports: No Symptoms. Denies: Headaches, Visual Changes Pulmonary: Reports: No Symptoms. Denies: Shortness of Breath, Cough Cardiovascular: Reports: No Symptoms. Denies: Chest Pain, Palpitations Gastrointestinal: Reports: No Symptoms. Denies: Abdominal Pain, Constipation, Decreased Appetite, Diarrhea Genitourinary: Reports: No Symptoms. Denies: Dysuria, Frequency Musculoskeletal: Reports: No Symptoms Skin: Reports: No Symptoms Neurological: Reports: No Symptoms. Denies: Dizziness, Headache Psychiatric: Reports: No Symptoms - Patient Data Vitals - Most Recent: Last Vital Signs Temp 98.2 F 09/30/20 11:31 Pulse 77 09/30/20 11:31 Resp 16 09/30/20 11:31 BP 121/65 09/30/20 11:31 Pulse Ox 97 09/30/20 11:31 Weight - Most Recent: 232 lb 9.403 oz I&O - Last 24 Hours: Intake & Output 09/29/20 09/30/20 09/30/20 22:59 06:59 14:59 Intake Total 300 Balance 300 Lab Results Last 24 Hours: Laboratory Results - last 24 hr 09/29/20 09/29/20 09/29/20 Range/Units 16:25 16:33 21:26 WBC (4.5-11.0) K/uL RBC (4.30-5.90) M/uL Hgb (12.0-15.0) g/dL Hct (40.0-54.0) % MCV (80-98) fL MCH (27-31) pg MCHC (32-36) % Plt Count (150-400) K/uL Sodium (140-148) mmol/L Potassium (3.6-5.2) mmol/L Chloride (100-108) mmol/L Carbon Dioxide (21-32) mmol/L Anion Gap (5.0-14.0) mmol/L BUN (7-18) mg/dL Creatinine (0.8-1.3) mg/dL Est Cr Clr Drug Dosing mL/min Estimated GFR (MDRD) (>60) Glucose (74-106) mg/dL POC Glucose 126 H 169 H (74-106) mg/dL Calcium (8.5-10.1) mg/dL Vancomycin Trough 23.7 H (10.0-20.0) ug/mL 09/30/20 09/30/20 09/30/20 Range/Units 04:00 04:00 07:24 WBC 9.4 (4.5-11.0) K/uL RBC 4.43 (4.30-5.90) M/uL Hgb 13.6 (12.0-15.0) g/dL Hct 41.5 (40.0-54.0) % MCV 94 (80-98) fL MCH 31 (27-31) pg MCHC 33 (32-36) % Plt Count 180 (150-400) K/uL Sodium (140-148) mmol/L Potassium (3.6-5.2) mmol/L Chloride (100-108) mmol/L Carbon Dioxide (21-32) mmol/L Anion Gap (5.0-14.0) mmol/L BUN (7-18) mg/dL Creatinine (0.8-1.3) mg/dL Est Cr Clr Drug Dosing mL/min Estimated GFR (MDRD) (>60) Glucose (74-106) mg/dL POC Glucose 112 H (74-106) mg/dL Calcium (8.5-10.1) mg/dL Vancomycin Trough (10.0-20.0) ug/mL 09/30/20 Range/Units 11:30 WBC (4.5-11.0) K/uL RBC (4.30-5.90) M/uL Hgb (12.0-15.0) g/dL Hct (40.0-54.0) % MCV (80-98) fL MCH (27-31) pg MCHC (32-36) % Plt Count (150-400) K/uL Sodium (140-148) mmol/L Potassium (3.6-5.2) mmol/L Chloride (100-108) mmol/L Carbon Dioxide (21-32) mmol/L Anion Gap (5.0-14.0) mmol/L BUN (7-18) mg/dL Creatinine (0.8-1.3) mg/dL Est Cr Clr Drug Dosing mL/min Estimated GFR (MDRD) (>60) Glucose (74-106) mg/dL POC Glucose 142 H (74-106) mg/dL Calcium (8.5-10.1) mg/dL Vancomycin Trough (10.0-20.0) ug/mL Kody Results Last 24 Hours: Microbiology 09/27/20 13:40 Aerobic Blood Culture - Preliminary Blood - Arm, Right NO GROWTH AFTER 2 DAYS Anaerobic Blood Culture - Final (Mrsa) Staphylococcus Aureus 09/27/20 13:45 Aerobic Blood Culture - Final Blood - Arm, Left (Mrsa) Staphylococcus Aureus Anaerobic Blood Culture - Preliminary NO GROWTH AFTER 2 DAYS Med Orders - Current: Current Medications Acetaminophen (Acetaminophen 325 Mg Tab) 650 mg PO Q4H PRN PRN Reason: Fever Last Admin: 09/27/20 14:53 Dose: 650 mg Documented by: Allopurinol (Allopurinol 100 Mg Tab) 100 mg PO DAILY [facility] Last Admin: 09/30/20 08:37 Dose: 100 mg Documented by: Amlodipine Besylate (Amlodipine 5 Mg Tab) 10 mg PO DAILY [facility] Last Admin: 09/30/20 08:36 Dose: 10 mg Documented by: Aspirin (Aspirin 81 Mg Tab.Chew) 81 mg PO DAILY [facility] Last Admin: 09/30/20 08:45 Dose: 81 mg Documented by: Atorvastatin Calcium (Atorvastatin 20 Mg Tab) 80 mg PO BEDTIME [facility] Last Admin: 09/29/20 20:21 Dose: 80 mg Documented by: Cholecalciferol (Cholecalciferol (Vitamin D3) 25 Mcg Tab) 50 mcg PO DAILY [facility] Last Admin: 09/30/20 08:35 Dose: 50 mcg Documented by: Dextrose/Water (50% Dextrose In Water 50 Ml Syringe) 50 ml IVPUSH ASDIRECTED PRN PRN Reason: Hypoglycemia Docusate Sodium (Docusate Sodium 100 Mg Cap) 100 mg PO DAILY [facility] Last Admin: 09/30/20 08:35 Dose: 100 mg Documented by: Enoxaparin Sodium (Enoxaparin 40 Mg/0.4 Ml Syringe) 40 mg SUBCUT Q24H [facility] Last Admin: 09/29/20 17:32 Dose: 40 mg Documented by: Furosemide (Furosemide 20 Mg Tab) 20 mg PO DAILY [facility] Last Admin: 09/30/20 08:35 Dose: 20 mg Documented by: Glucagon (Glucagon,Human Recombinant 1 Mg Vial) 1 mg IM ASDIRECTED PRN PRN Reason: Hypoglycemia Cefepime HCl 2 gm/ Sodium (Chloride) 50 mls @ 100 mls/hr IV Q12H [facility] Last Admin: 09/30/20 02:59 Dose: 100 mls/hr Documented by: Sodium Chloride (Normal Saline) 1,000 mls @ 100 mls/hr IV ASDIRECTED [facility] Last Admin: 09/29/20 14:29 Dose: 100 mls/hr Documented by: Vancomycin HCl 1.6 gm/ Sodium (Chloride) 250 mls @ 166.667 mls/hr IV Q18H [facility] Last Admin: 09/29/20 21:39 Dose: 166.667 mls/hr Documented by: Insulin Glargine (Insulin Glargine,Human Rec. Analog 100 Units/Ml 3 Ml Pen) 30 units SUBCUT BEDTIME [facility] Last Admin: 09/29/20 21:35 Dose: 30 units Documented by: Insulin Human Lispro (Insulin Lispro 100 Unit/Ml 3 Ml Kwikpen) 0 unit SUBCUT QIDACANDBED [facility]; Protocol Last Admin: 09/30/20 08:34 Dose: Not Given Documented by: Lisinopril (Lisinopril 20 Mg Tab) 20 mg PO DAILY [facility] Last Admin: 09/30/20 08:35 Dose: 20 mg Documented by: Metoprolol Succinate (Metoprolol Succinate 50 Mg Tab.Er) 200 mg PO DAILY [facility] Last Admin: 09/30/20 08:36 Dose: 200 mg Documented by: Spironolactone (Spironolactone 25 Mg Tab) 25 mg PO DAILY [facility] Last Admin: 09/30/20 08:37 Dose: 25 mg Documented by: Discontinued Medications Bacitracin (Bacitracin Oint 1 Gm U/D Packet) 1 dose TOP ONETIME ONE Stop: 09/27/20 13:33 Last Admin: 09/27/20 13:44 Dose: 1 dose Documented by: Diphtheria/Tetanus/Acell Pertussis (Diphtheria,Pertussis(Acell),Tetanus Vaccine 0.5 Ml Syringe) 0.5 ml IM .ONCE ONE Stop: 09/27/20 11:36 Last Admin: 09/27/20 12:02 Dose: 0.5 ml Documented by: Lactated Ringer's (Ringers, Lactated) 1,000 mls @ 1,000 mls/hr IV ASDIRECTED [facility] Last Admin: 09/27/20 12:58 Dose: 1,000 mls/hr Documented by: Vancomycin HCl 2.1 gm/ Sodium (Chloride) 500 mls @ 250 mls/hr IV ONETIME ONE Stop: 09/27/20 17:59 Last Admin: 09/27/20 16:59 Dose: 250 mls/hr Documented by: Vancomycin HCl 1.6 gm/ Sodium (Chloride) 250 mls @ 166.667 mls/hr IV Q12H [facility] Last Admin: 09/29/20 17:28 Dose: Not Given Documented by: Insulin Human Lispro (Insulin Lispro 100 Unit/Ml 3 Ml Kwikpen) 0 unit SUBCUT ASDIRECTED [facility]; Protocol Lidocaine HCl (Lidocaine 2% 20 Ml Mdv) 5 ml SUBCUT ONETIME ONE Stop: 09/27/20 12:11 Last Admin: 09/27/20 12:25 Dose: 5 ml Documented by: Vancomycin HCl (Vancomycin 1 Gm Sdv) 0 gm IV .PHARMACY TO DOSE [facility] Stop: 09/27/20 18:00 - Exam General: Alert, Oriented, Cooperative, No Acute Distress HEENT: Pupils Equal, EOMI, Mucous Membr. Moist/[place] Lungs: Clear to Auscultation, Normal Respiratory Effort Cardiovascular: Regular Rate, Regular Rhythm GI/Abdominal Exam: Normal Bowel Sounds, Soft, Non-Tender, No Distention (Male) Exam: Testicular Tenderness (R) Extremities: No Pedal Edema, Other (Left second toe gangrene, bruising or early gangrene on the fourth left toe, mottling and whiteness of the right pinky toe) Skin: Warm, Dry, Intact Neurological: No New Focal Deficit Psy/Mental Status: Alert, Normal Affect, Normal Mood - Patient Data Lab Results Last 24 hrs: Laboratory Results - last 24 hr 09/29/20 09/29/20 09/29/20 Range/Units 16:25 16:33 21:26 WBC (4.5-11.0) K/uL RBC (4.30-5.90) M/uL Hgb (12.0-15.0) g/dL Hct (40.0-54.0) % MCV (80-98) fL MCH (27-31) pg MCHC (32-36) % Plt Count (150-400) K/uL Sodium (140-148) mmol/L Potassium (3.6-5.2) mmol/L Chloride (100-108) mmol/L Carbon Dioxide (21-32) mmol/L Anion Gap (5.0-14.0) mmol/L BUN (7-18) mg/dL Creatinine (0.8-1.3) mg/dL Est Cr Clr Drug Dosing mL/min Estimated GFR (MDRD) (>60) Glucose (74-106) mg/dL POC Glucose 126 H 169 H (74-106) mg/dL Calcium (8.5-10.1) mg/dL Vancomycin Trough 23.7 H (10.0-20.0) ug/mL 09/30/20 09/30/20 09/30/20 Range/Units 04:00 04:00 07:24 WBC 9.4 (4.5-11.0) K/uL RBC 4.43 (4.30-5.90) M/uL Hgb 13.6 (12.0-15.0) g/dL Hct 41.5 (40.0-54.0) % MCV 94 (80-98) fL MCH 31 (27-31) pg MCHC 33 (32-36) % Plt Count 180 (150-400) K/uL Sodium (140-148) mmol/L Potassium (3.6-5.2) mmol/L Chloride (100-108) mmol/L Carbon Dioxide (21-32) mmol/L Anion Gap (5.0-14.0) mmol/L BUN (7-18) mg/dL Creatinine (0.8-1.3) mg/dL Est Cr Clr Drug Dosing mL/min Estimated GFR (MDRD) (>60) Glucose (74-106) mg/dL POC Glucose 112 H (74-106) mg/dL Calcium (8.5-10.1) mg/dL Vancomycin Trough (10.0-20.0) ug/mL 09/30/20 Range/Units 11:30 WBC (4.5-11.0) K/uL RBC (4.30-5.90) M/uL Hgb (12.0-15.0) g/dL Hct (40.0-54.0) % MCV (80-98) fL MCH (27-31) pg MCHC (32-36) % Plt Count (150-400) K/uL Sodium (140-148) mmol/L Potassium (3.6-5.2) mmol/L Chloride (100-108) mmol/L Carbon Dioxide (21-32) mmol/L Anion Gap (5.0-14.0) mmol/L BUN (7-18) mg/dL Creatinine (0.8-1.3) mg/dL Est Cr Clr Drug Dosing mL/min Estimated GFR (MDRD) (>60) Glucose (74-106) mg/dL POC Glucose 142 H (74-106) mg/dL Calcium (8.5-10.1) mg/dL Vancomycin Trough (10.0-20.0) ug/mL Result Diagrams: 09/30/20 04:00 09/30/20 04:00 Kody Results Last 24 hrs: Microbiology 09/27/20 13:40 Aerobic Blood Culture - Preliminary Blood - Arm, Right NO GROWTH AFTER 2 DAYS Anaerobic Blood Culture - Final (Mrsa) Staphylococcus Aureus 09/27/20 13:45 Aerobic Blood Culture - Final Blood - Arm, Left (Mrsa) Staphylococcus Aureus Anaerobic Blood Culture - Preliminary NO GROWTH AFTER 2 DAYS Sepsis Event Note - Evaluation Sepsis Screening Result: No Definite Risk - Focused Exam Vital Signs: Vital Signs Temp Pulse Pulse Resp BP BP Pulse Ox 09/30/20 11:31 98.2 F 77 16 121/65 97 09/30/20 08:36 89 139/71 09/30/20 08:35 139/71 09/30/20 08:21 97.6 F 89 16 139/71 98 09/30/20 03:00 96.6 F L 68 16 110/55 L 95 - Problem List & Annotations (1) MRSA bacteremia SNOMED Code(s): 36208629105302433 Code(s): R78.81 - BACTEREMIA; B95.62 - METHICILLIN RESIS STAPH INFCT CAUSING DISEASES CLASSD ELSWHR Status: Acute Current Visit: Yes (2) Dry gangrene SNOMED Code(s): 514407146, 085434760 Code(s): I96 - GANGRENE, NOT ELSEWHERE CLASSIFIED Status: Acute Current Visit: Yes (3) MRSA cellulitis of left foot SNOMED Code(s): 042217116, 159200358 Code(s): L03.116 - CELLULITIS OF LEFT LOWER LIMB; B95.62 - METHICILLIN RESIS STAPH INFCT CAUSING DISEASES CLASSD ELSWHR Status: Acute Current Visit: Yes - Problem List Review Problem List Initiated/Reviewed/Updated: Yes - My Orders Last 24 Hours: My Active Orders 09/29/20 14:45 Echo Comp wo Cont [US] Routine 09/29/20 22:00 Vancomycin 1.6 gm Sodium Chloride 0.9% [Normal Saline] 250 ml IV Q18H 09/30/20 09:14 Blood Culture x2 Reflex Set [OM.PC] Urgent 09/30/20 09:28 CULTURE BLOOD [BC] Routine 09/30/20 10:10 Central Line Assessment [RC] QSHIFT 09/30/20 16:30 GLUCOSE POC LAB TO COLLECT JPM [POC] QIDACANDBED 09/30/20 21:00 GLUCOSE POC LAB TO COLLECT JPM [POC] QIDACANDBED 10/01/20 07:30 GLUCOSE POC LAB TO COLLECT JPM [POC] QIDACANDBED 10/01/20 09:14 CULTURE BLOOD [BC] Routine 10/01/20 11:30 GLUCOSE POC LAB TO COLLECT JPM [POC] QIDACANDBED 10/01/20 16:30 GLUCOSE POC LAB TO COLLECT JPM [POC] QIDACANDBED 10/01/20 21:00 GLUCOSE POC LAB TO COLLECT JPM [POC] QIDACANDBED 10/02/20 10:09 Central Line PICC Insertion [Central Venous Line Insertion] [OM.PC] Routine 10/02/20 14:45 Echo Comp wo Cont [US] Routine - Plan Plan:: MRSA bacteremia secondary to cellulitis of the second left toe with dry gangrene-was initially septic but that has resolved -Had tachycardia and tachypnea on arrival, low-grade fever when moving to the floor -Cefepime 2 mg every 12 was discontinued - vancomycin per pharmacy protocol-he will need a total of 14 days vancomycin post negative blood culture which was drawn today, a second blood culture will be drawn tomorrow just in case this 1 is positive however I do not believe it will be -Vitals q4h -Echocardiogram has been ordered for Friday to rule out endocarditis or valvular vegetations Dry gangrene with surrounding cellulitis of the second toe-likely secondary to injury in the setting of diabetic peripheral neuropathy, possibly secondary to vascular insufficiency in the setting of arterial vascular disease -Management per above, along with management for diabetes mention below -There is concern for dry gangrene developing in the fourth toe, as well as the pinky toe -We will have podiatry see him on Friday inpatient and make a plan for outpatient extended care as I anticipate to other toes may be affected and this may be a long-term condition for him chronic kidney disease likely stage IIIa-his acute kidney injury has resolved -We will continue to monitor via basic metabolic panel Uncontrolled diabetes mellitus type 2 with peripheral neuropathy -Blood sugars in the ED were 246, patient states his blood sugars have not been controlled at home with an average blood sugar of 185 -Home oral medications will be held, in the past week has received a Trulicity injection -30 units of glargine at bedtime and sliding scale insulin low-dose with meals- tolerating well -Monitoring blood sugars 3 times daily AC -Goal blood sugar is under 180 to facilitate healing, he has been meeting this goal -A1c is pending Heart failure with reduced ejection fraction, diastolic and systolic secondary to coronary artery disease status post CABG and hypertensive cardiomyopathy -Last echo available was done on 08/10/2016: EF 40 to 45% which was improved from an echo done on 05/14/2016 showing an EF of 20 to 25% -Continue home medications: Renal lactone 25 mg, frusemide 20 mg, Toprol 200 mg, daily aspirin, senna pill 20 mg -Continue home med of atorvastatin 80 mg Essential hypertension -Restarting home med amlodipine 10 mg Gout -Restarting home med of allopurinol 100 mg Psoriasis -He has typical lesions on the upper and lower extremities concentrated in the area of the anterior lower leg and hands -He does not take medications for this Obesity class I -BMI: 32 -Will be on an 1800 calorie/day diet for diabetes and obesity CODE STATUS: Full code VTE prophylaxis: SCDs on the right contraindicated, enoxaparin Diet: Heart healthy diet, 1800 bebeto/day GI prophylaxis: Not indicated at this time Plan: Plan for podiatry consult, echo, and PICC line placement on Friday. The plan has been explained to and his . I did state that while he has the PICC line in place he will not be able to return to work. An initial leave of absence was signed for him for his job however he may need another written note before leaving. Disposition: I anticipate he will go home after hospital stay. Dali Jeronimo,
[2020-09-30] MEDS: Sodium Chloride 0.9% 1,000 ML IV SCH (15:15)
[2020-09-30] MEDS: Vancomycin 1.6 GM in Sodium Chloride 0.9% 250 ML IV SCH (16:53)
[2020-09-30] MEDS: Enoxaparin 40 MG/0.4 ML Syringe SUBCUT SCH (17:00)
[2020-09-30] MEDS: Insulin Glargine,Human Rec. Analog 100 Units/ML 3 ML Pen SUBCUT SCH (21:18)
[2020-09-30] MEDS: atorvaSTATin 20 MG Tab PO SCH (21:18)
[2020-10-01] MEDS: Sodium Chloride 0.9% 1,000 ML IV SCH ×2 (01:25→11:15)
[2020-10-01] MEDS: Cefepime 2 GM in Sodium Chloride 0.9% 50 ML IV SCH (04:08)
[2020-10-01] MEDS: Cholecalciferol (Vitamin D3) 25 MCG Tab PO SCH (08:59)
[2020-10-01] MEDS: Docusate Sodium 100 MG Cap PO SCH (08:59)
[2020-10-01] MEDS: Allopurinol 100 MG Tab PO SCH (08:59)
[2020-10-01] MEDS: Spironolactone 25 MG Tab PO SCH (08:59)
[2020-10-01] MEDS: Lisinopril 20 MG Tab PO SCH (08:59)
[2020-10-01] MEDS: Insulin Lispro 100 Unit/ML 3 ML KwikPen SUBCUT SCH ×4 (08:59→21:45)
[2020-10-01] MEDS: Aspirin 81 MG Tab.Chew PO SCH (09:00)
[2020-10-01] MEDS: Metoprolol Succinate 50 MG Tab.ER PO SCH (09:00)
[2020-10-01] MEDS: amLODIPine 5 MG Tab PO SCH (09:00)
[2020-10-01] MEDS: Furosemide 20 MG Tab PO SCH (09:03)
[2020-10-01] MEDS ORDERED: Sodium Chloride 0.9% 1,000 ML IV SCH (10:15)
[2020-10-01] MEDS: Vancomycin 1.6 GM in Sodium Chloride 0.9% 250 ML IV SCH ×2 (11:15→22:39)
--- NOTE | 2020-10-01 14:41 | PCM.PN ---
- General Info Date of Service: 10/01/20 Admission Dx/Problem (Free Text): Admission Diagnosis/Problem Admission Diagnosis/Problem Sepsis seoncdary to Right 2nd Toe infection, MRSA Bacteremia Subjective Update: had no events overnight and has no complaints today. We did review the plan for Friday getting the echo, PICC line and podiatry consult. He has no questions he is doing well and has no symptoms. The toe does not have pain or significant erythema. Functional Status: Reports: Pain Controlled, Tolerating Diet, Ambulating, Urinating. Denies: New Symptoms - Review of Systems General: Reports: No Symptoms, Appetite. Denies: Fever, Weakness, Fatigue, Chills HEENT: Reports: No Symptoms. Denies: Headaches, Visual Changes Pulmonary: Reports: No Symptoms. Denies: Shortness of Breath, Cough Cardiovascular: Reports: No Symptoms. Denies: Chest Pain, Palpitations Gastrointestinal: Reports: No Symptoms. Denies: Abdominal Pain, Constipation, Decreased Appetite, Diarrhea, Nausea, Vomiting Genitourinary: Reports: No Symptoms. Denies: Dysuria, Frequency, Urgency Musculoskeletal: Reports: No Symptoms. Denies: Foot Pain Skin: Reports: No Symptoms Neurological: Reports: No Symptoms. Denies: Confusion, Headache Psychiatric: Reports: No Symptoms. Denies: Confusion - Patient Data Vitals - Most Recent: Last Vital Signs Temp 98.4 F 10/01/20 10:54 Pulse 85 10/01/20 10:54 Resp 16 10/01/20 10:54 BP 124/83 10/01/20 10:54 Pulse Ox 98 10/01/20 10:54 Weight - Most Recent: 232 lb 9.403 oz I&O - Last 24 Hours: Intake & Output 09/30/20 10/01/20 10/01/20 22:59 06:59 14:59 Intake Total 1851 1650 406 Balance 1851 1650 406 Lab Results Last 24 Hours: Laboratory Results - last 24 hr 09/30/20 09/30/20 10/01/20 Range/Units 16:33 20:51 05:56 WBC 11.0 (4.5-11.0) K/uL RBC 4.47 (4.30-5.90) M/uL Hgb 14.0 (12.0-15.0) g/dL Hct 41.9 (40.0-54.0) % MCV 94 (80-98) fL MCH 31 (27-31) pg MCHC 33 (32-36) % Plt Count 222 (150-400) K/uL Sodium (140-148) mmol/L Potassium (3.6-5.2) mmol/L Chloride (100-108) mmol/L Carbon Dioxide (21-32) mmol/L Anion Gap (5.0-14.0) mmol/L BUN (7-18) mg/dL Creatinine (0.8-1.3) mg/dL Est Cr Clr Drug Dosing mL/min Estimated GFR (MDRD) (>60) Glucose (74-106) mg/dL POC Glucose 140 H 178 H (74-106) mg/dL Calcium (8.5-10.1) mg/dL Vancomycin Trough (10.0-20.0) ug/mL 10/01/20 10/01/20 10/01/20 Range/Units 05:56 07:24 09:56 WBC (4.5-11.0) K/uL RBC (4.30-5.90) M/uL Hgb (12.0-15.0) g/dL Hct (40.0-54.0) % MCV (80-98) fL MCH (27-31) pg MCHC (32-36) % Plt Count (150-400) K/uL Sodium 139 L (140-148) mmol/L Potassium 4.2 (3.6-5.2) mmol/L Chloride 103 (100-108) mmol/L Carbon Dioxide 26 (21-32) mmol/L Anion Gap 14.2 H (5.0-14.0) mmol/L BUN 17 (7-18) mg/dL Creatinine 1.3 (0.8-1.3) mg/dL Est Cr Clr Drug Dosing 72.11 mL/min Estimated GFR (MDRD) 58 L (>60) Glucose 139 H (74-106) mg/dL POC Glucose 143 H (74-106) mg/dL Calcium 8.8 (8.5-10.1) mg/dL Vancomycin Trough 14.3 (10.0-20.0) ug/mL 10/01/20 Range/Units 11:24 WBC (4.5-11.0) K/uL RBC (4.30-5.90) M/uL Hgb (12.0-15.0) g/dL Hct (40.0-54.0) % MCV (80-98) fL MCH (27-31) pg MCHC (32-36) % Plt Count (150-400) K/uL Sodium (140-148) mmol/L Potassium (3.6-5.2) mmol/L Chloride (100-108) mmol/L Carbon Dioxide (21-32) mmol/L Anion Gap (5.0-14.0) mmol/L BUN (7-18) mg/dL Creatinine (0.8-1.3) mg/dL Est Cr Clr Drug Dosing mL/min Estimated GFR (MDRD) (>60) Glucose (74-106) mg/dL POC Glucose 192 H (74-106) mg/dL Calcium (8.5-10.1) mg/dL Vancomycin Trough (10.0-20.0) ug/mL Kody Results Last 24 Hours: Microbiology 09/27/20 13:40 Aerobic Blood Culture - Preliminary Blood - Arm, Right NO GROWTH AFTER 4 DAYS Anaerobic Blood Culture - Final (Mrsa) Staphylococcus Aureus 09/27/20 13:45 Aerobic Blood Culture - Final Blood - Arm, Left (Mrsa) Staphylococcus Aureus Anaerobic Blood Culture - Preliminary NO GROWTH AFTER 4 DAYS 09/30/20 09:28 Aerobic Blood Culture - Preliminary Blood - Arm, Right NO GROWTH AFTER 1 DAY Anaerobic Blood Culture - Preliminary NO GROWTH AFTER 1 DAY Med Orders - Current: Current Medications Acetaminophen (Acetaminophen 325 Mg Tab) 650 mg PO Q4H PRN PRN Reason: Fever Last Admin: 09/27/20 14:53 Dose: 650 mg Documented by: Allopurinol (Allopurinol 100 Mg Tab) 100 mg PO DAILY [facility] Last Admin: 10/01/20 08:59 Dose: 100 mg Documented by: Amlodipine Besylate (Amlodipine 5 Mg Tab) 10 mg PO DAILY [facility] Last Admin: 10/01/20 09:00 Dose: 10 mg Documented by: Aspirin (Aspirin 81 Mg Tab.Chew) 81 mg PO DAILY [facility] Last Admin: 10/01/20 09:00 Dose: 81 mg Documented by: Atorvastatin Calcium (Atorvastatin 20 Mg Tab) 80 mg PO BEDTIME [facility] Last Admin: 09/30/20 21:18 Dose: 80 mg Documented by: Cholecalciferol (Cholecalciferol (Vitamin D3) 25 Mcg Tab) 50 mcg PO DAILY [facility] Last Admin: 10/01/20 08:59 Dose: 50 mcg Documented by: Dextrose/Water (50% Dextrose In Water 50 Ml Syringe) 50 ml IVPUSH ASDIRECTED PRN PRN Reason: Hypoglycemia Docusate Sodium (Docusate Sodium 100 Mg Cap) 100 mg PO DAILY [facility] Last Admin: 10/01/20 08:59 Dose: 100 mg Documented by: Enoxaparin Sodium (Enoxaparin 40 Mg/0.4 Ml Syringe) 40 mg SUBCUT Q24H [facility] Last Admin: 09/30/20 17:00 Dose: 40 mg Documented by: Furosemide (Furosemide 20 Mg Tab) 20 mg PO DAILY [facility] Last Admin: 10/01/20 09:03 Dose: 20 mg Documented by: Glucagon (Glucagon,Human Recombinant 1 Mg Vial) 1 mg IM ASDIRECTED PRN PRN Reason: Hypoglycemia Cefepime HCl 2 gm/ Sodium (Chloride) 50 mls @ 100 mls/hr IV Q12H [facility] Last Admin: 10/01/20 04:08 Dose: 100 mls/hr Documented by: Sodium Chloride (Normal Saline) 1,000 mls @ 100 mls/hr IV ASDIRECTED [facility] Last Infusion: 10/01/20 11:17 Dose: 50 mls/hr Documented by: Sodium Chloride (Normal Saline) 1,000 mls @ 50 mls/hr IV ASDIRECTED KIRK Vancomycin HCl 1.6 gm/ Sodium (Chloride) 250 mls @ 166.667 mls/hr IV Q12H [facility] Last Admin: 10/01/20 11:15 Dose: 166.667 mls/hr Documented by: Insulin Glargine (Insulin Glargine,Human Rec. Analog 100 Units/Ml 3 Ml Pen) 30 units SUBCUT BEDTIME [facility] Last Admin: 09/30/20 21:18 Dose: 30 units Documented by: Insulin Human Lispro (Insulin Lispro 100 Unit/Ml 3 Ml Kwikpen) 0 unit SUBCUT QIDACANDBED [facility]; Protocol Last Admin: 10/01/20 12:12 Dose: 1 unit Documented by: Lisinopril (Lisinopril 20 Mg Tab) 20 mg PO DAILY [facility] Last Admin: 10/01/20 08:59 Dose: 20 mg Documented by: Metoprolol Succinate (Metoprolol Succinate 50 Mg Tab.Er) 200 mg PO DAILY [facility] Last Admin: 10/01/20 09:00 Dose: 200 mg Documented by: Spironolactone (Spironolactone 25 Mg Tab) 25 mg PO DAILY [facility] Last Admin: 10/01/20 08:59 Dose: 25 mg Documented by: Discontinued Medications Bacitracin (Bacitracin Oint 1 Gm U/D Packet) 1 dose TOP ONETIME ONE Stop: 09/27/20 13:33 Last Admin: 09/27/20 13:44 Dose: 1 dose Documented by: Diphtheria/Tetanus/Acell Pertussis (Diphtheria,Pertussis(Acell),Tetanus Vaccine 0.5 Ml Syringe) 0.5 ml IM .ONCE ONE Stop: 09/27/20 11:36 Last Admin: 09/27/20 12:02 Dose: 0.5 ml Documented by: Lactated Ringer's (Ringers, Lactated) 1,000 mls @ 1,000 mls/hr IV ASDIRECTED [facility] Last Admin: 09/27/20 12:58 Dose: 1,000 mls/hr Documented by: Vancomycin HCl 2.1 gm/ Sodium (Chloride) 500 mls @ 250 mls/hr IV ONETIME ONE Stop: 09/27/20 17:59 Last Admin: 09/27/20 16:59 Dose: 250 mls/hr Documented by: Vancomycin HCl 1.6 gm/ Sodium (Chloride) 250 mls @ 166.667 mls/hr IV Q12H [facility] Last Admin: 09/29/20 17:28 Dose: Not Given Documented by: Vancomycin HCl 1.6 gm/ Sodium (Chloride) 250 mls @ 166.667 mls/hr IV Q18H [facility] Last Admin: 09/30/20 16:53 Dose: 166.667 mls/hr Documented by: Insulin Human Lispro (Insulin Lispro 100 Unit/Ml 3 Ml Kwikpen) 0 unit SUBCUT ASDIRECTED [facility]; Protocol Lidocaine HCl (Lidocaine 2% 20 Ml Mdv) 5 ml SUBCUT ONETIME ONE Stop: 09/27/20 12:11 Last Admin: 09/27/20 12:25 Dose: 5 ml Documented by: Vancomycin HCl (Vancomycin 1 Gm Sdv) 0 gm IV .PHARMACY TO DOSE [facility] Stop: 09/27/20 18:00 - Exam General: Alert, Oriented, Cooperative, No Acute Distress HEENT: Pupils Equal, EOMI, Mucous Membr. Moist/[place] Lungs: Clear to Auscultation, Normal Respiratory Effort Cardiovascular: Regular Rate, Regular Rhythm GI/Abdominal Exam: Normal Bowel Sounds, Soft, Non-Tender, No Distention Back Exam: Normal Inspection Extremities: Normal Inspection, Non-Tender, No Pedal Edema Skin: Warm, Dry, Intact Wound/Incisions: Other (Left second toe black dry gangrene, bruise versus early gangrene on left fourth toe, mottling and white areas on right pinky toe) Neurological: No New Focal Deficit Psy/Mental Status: Alert, Normal Affect, Normal Mood - Patient Data Lab Results Last 24 hrs: Laboratory Results - last 24 hr 09/30/20 09/30/20 10/01/20 Range/Units 16:33 20:51 05:56 WBC 11.0 (4.5-11.0) K/uL RBC 4.47 (4.30-5.90) M/uL Hgb 14.0 (12.0-15.0) g/dL Hct 41.9 (40.0-54.0) % MCV 94 (80-98) fL MCH 31 (27-31) pg MCHC 33 (32-36) % Plt Count 222 (150-400) K/uL Sodium (140-148) mmol/L Potassium (3.6-5.2) mmol/L Chloride (100-108) mmol/L Carbon Dioxide (21-32) mmol/L Anion Gap (5.0-14.0) mmol/L BUN (7-18) mg/dL Creatinine (0.8-1.3) mg/dL Est Cr Clr Drug Dosing mL/min Estimated GFR (MDRD) (>60) Glucose (74-106) mg/dL POC Glucose 140 H 178 H (74-106) mg/dL Calcium (8.5-10.1) mg/dL Vancomycin Trough (10.0-20.0) ug/mL 10/01/20 10/01/20 10/01/20 Range/Units 05:56 07:24 09:56 WBC (4.5-11.0) K/uL RBC (4.30-5.90) M/uL Hgb (12.0-15.0) g/dL Hct (40.0-54.0) % MCV (80-98) fL MCH (27-31) pg MCHC (32-36) % Plt Count (150-400) K/uL Sodium 139 L (140-148) mmol/L Potassium 4.2 (3.6-5.2) mmol/L Chloride 103 (100-108) mmol/L Carbon Dioxide 26 (21-32) mmol/L Anion Gap 14.2 H (5.0-14.0) mmol/L BUN 17 (7-18) mg/dL Creatinine 1.3 (0.8-1.3) mg/dL Est Cr Clr Drug Dosing 72.11 mL/min Estimated GFR (MDRD) 58 L (>60) Glucose 139 H (74-106) mg/dL POC Glucose 143 H (74-106) mg/dL Calcium 8.8 (8.5-10.1) mg/dL Vancomycin Trough 14.3 (10.0-20.0) ug/mL 10/01/20 Range/Units 11:24 WBC (4.5-11.0) K/uL RBC (4.30-5.90) M/uL Hgb (12.0-15.0) g/dL Hct (40.0-54.0) % MCV (80-98) fL MCH (27-31) pg MCHC (32-36) % Plt Count (150-400) K/uL Sodium (140-148) mmol/L Potassium (3.6-5.2) mmol/L Chloride (100-108) mmol/L Carbon Dioxide (21-32) mmol/L Anion Gap (5.0-14.0) mmol/L BUN (7-18) mg/dL Creatinine (0.8-1.3) mg/dL Est Cr Clr Drug Dosing mL/min Estimated GFR (MDRD) (>60) Glucose (74-106) mg/dL POC Glucose 192 H (74-106) mg/dL Calcium (8.5-10.1) mg/dL Vancomycin Trough (10.0-20.0) ug/mL Result Diagrams: 10/01/20 05:56 10/01/20 05:56 Kody Results Last 24 hrs: Microbiology 09/27/20 13:40 Aerobic Blood Culture - Preliminary Blood - Arm, Right NO GROWTH AFTER 4 DAYS Anaerobic Blood Culture - Final (Mrsa) Staphylococcus Aureus 09/27/20 13:45 Aerobic Blood Culture - Final Blood - Arm, Left (Mrsa) Staphylococcus Aureus Anaerobic Blood Culture - Preliminary NO GROWTH AFTER 4 DAYS 09/30/20 09:28 Aerobic Blood Culture - Preliminary Blood - Arm, Right NO GROWTH AFTER 1 DAY Anaerobic Blood Culture - Preliminary NO GROWTH AFTER 1 DAY Sepsis Event Note - Evaluation Sepsis Screening Result: No Definite Risk - Focused Exam Vital Signs: Vital Signs Temp Pulse Pulse Resp BP BP Pulse Ox 10/01/20 10:54 98.4 F 85 16 124/83 98 10/01/20 09:00 81 140/74 10/01/20 08:59 140/74 10/01/20 07:45 97.7 F 81 16 140/74 98 10/01/20 03:00 98.5 F 84 16 124/68 98 - Problem List & Annotations (1) MRSA bacteremia SNOMED Code(s): 34454457783380811 Code(s): R78.81 - BACTEREMIA; B95.62 - METHICILLIN RESIS STAPH INFCT CAUSING DISEASES CLASSD ELSWHR Status: Acute Current Visit: Yes (2) Dry gangrene SNOMED Code(s): 251073612, 550694754 Code(s): I96 - GANGRENE, NOT ELSEWHERE CLASSIFIED Status: Acute Current Visit: Yes (3) MRSA cellulitis of left foot SNOMED Code(s): 483734707, 327665238 Code(s): L03.116 - CELLULITIS OF LEFT LOWER LIMB; B95.62 - METHICILLIN RESIS STAPH INFCT CAUSING DISEASES CLASSD ELSWHR Status: Acute Current Visit: Yes - Problem List Review Problem List Initiated/Reviewed/Updated: Yes - My Orders Last 24 Hours: My Active Orders 10/01/20 05:56 CULTURE BLOOD [BC] Routine 10/01/20 10:15 Sodium Chloride 0.9% [Normal Saline] 1,000 ml IV ASDIRECTED 10/01/20 11:00 Vancomycin 1.6 gm Sodium Chloride 0.9% [Normal Saline] 250 ml IV Q12H 10/01/20 16:30 GLUCOSE POC LAB TO COLLECT JPM [POC] QIDACANDBED 10/01/20 21:00 GLUCOSE POC LAB TO COLLECT JPM [POC] QIDACANDBED 10/02/20 10:09 Central Line PICC Insertion [Central Venous Line Insertion] [OM.PC] Routine 10/02/20 14:45 Echo Comp wo Cont [US] Routine - Plan Plan:: MRSA bacteremia secondary to cellulitis of the second left toe with dry gangrene-was initially septic but that has resolved -Had tachycardia and tachypnea on arrival, low-grade fever when moving to the floor -Cefepime 2 mg every 12 was discontinued - vancomycin per pharmacy protocol-he will need a total of 14 days vancomycin post negative blood culture which was drawn 09/30/2020, a second blood culture was drawn on 10/01/2020 just in case this 1 is positive however I do not believe it will be as he had complete resolution of septic symptoms on 09/28/2020 -Vitals q4h -Echocardiogram has been ordered for Friday to rule out endocarditis or valvular vegetations-he does have a history of CABG Dry gangrene with surrounding cellulitis of the second toe-likely secondary to injury in the setting of diabetic peripheral neuropathy and vascular insufficiency in the setting of arterial vascular disease -Management per above, along with management for diabetes mention below -There is concern for dry gangrene developing in the fourth toe, as well as the pinky toe -We will have podiatry see him on Friday inpatient and make a plan for outpatient extended care as I anticipate to other toes may be affected and this may be a long-term condition for him chronic kidney disease likely stage IIIa-his acute kidney injury has resolved -We will continue to monitor via basic metabolic panel -He was having episodes of hyponatremia so he was started on IV normal saline Uncontrolled diabetes mellitus type 2 with peripheral neuropathy -Blood sugars in the ED were 246, patient states his blood sugars have not been controlled at home with an average blood sugar of 185 -Home oral medications will be held, in the past week has received a Trulicity injection -30 units of glargine at bedtime and sliding scale insulin low-dose with meals- tolerating well -Monitoring blood sugars 3 times daily AC -Goal blood sugar is under 180 to facilitate healing, he has been meeting this goal -A1c is pending Heart failure with reduced ejection fraction, diastolic and systolic secondary to coronary artery disease status post CABG and hypertensive cardiomyopathy -Last echo available was done on 08/10/2016: EF 40 to 45% which was improved from an echo done on 05/14/2016 showing an EF of 20 to 25% -Continue home medications: Spironolactone 25 mg, frusemide 20 mg, Toprol 200 mg, daily aspirin -Continue home med of atorvastatin 80 mg Essential hypertension -on home med amlodipine 10 mg Gout -on home med of allopurinol 100 mg Psoriasis -He has typical lesions on the upper and lower extremities concentrated in the area of the anterior lower leg and hands -He does not take medications for this Obesity class I -BMI: 32 -Will be on an 1800 calorie/day diet for diabetes and obesity CODE STATUS: Full code VTE prophylaxis: SCDs on the right contraindicated, enoxaparin Diet: Heart healthy diet, 1800 bebeto/day GI prophylaxis: Not indicated at this time Plan: Plan for podiatry consult, echo, and PICC line placement on Friday. The plan has been explained to and his . He has been advised that while he has the PICC line in place he will not be able to return to work. An initial leave of absence was signed for him for his job however he may need another written note before leaving. Disposition: I anticipate he will go home after hospital stay. Dali Jeronimo,
[2020-10-01] MEDS: Enoxaparin 40 MG/0.4 ML Syringe SUBCUT SCH (17:13)
[2020-10-01] MEDS: Insulin Glargine,Human Rec. Analog 100 Units/ML 3 ML Pen SUBCUT SCH (21:44)
[2020-10-01] MEDS: atorvaSTATin 20 MG Tab PO SCH (21:46)
[2020-10-02] MEDS: Insulin Lispro 100 Unit/ML 3 ML KwikPen SUBCUT SCH ×3 (08:21→17:29)
[2020-10-02] MEDS: Aspirin 81 MG Tab.Chew PO SCH (08:27)
[2020-10-02] MEDS: Docusate Sodium 100 MG Cap PO SCH (08:27)
[2020-10-02] MEDS: Spironolactone 25 MG Tab PO SCH (08:28)
[2020-10-02] MEDS: Furosemide 20 MG Tab PO SCH (08:28)
[2020-10-02] MEDS: amLODIPine 5 MG Tab PO SCH (08:29)
[2020-10-02] MEDS: Allopurinol 100 MG Tab PO SCH (08:29)
[2020-10-02] MEDS: Cholecalciferol (Vitamin D3) 25 MCG Tab PO SCH (08:30)
[2020-10-02] MEDS: Lisinopril 20 MG Tab PO SCH (08:30)
[2020-10-02] MEDS: Metoprolol Succinate 50 MG Tab.ER PO SCH (08:31)
[2020-10-02] MEDS: Vancomycin 1.6 GM in Sodium Chloride 0.9% 250 ML IV SCH (10:55)
--- NOTE | 2020-10-02 10:57 | US ---
VL Duplex Lwr Ext Art Ltd Rt CLINICAL HISTORY: Gangrene of toe FINDINGS: Real-time and Doppler images were obtained through the right lower extremity arterial system from the common femoral artery downward to the dorsal: Posterior tibial arteries. Doppler images show multiphasic waveforms in the common femoral artery as well as the profunda femoral artery and proximal to mid superficial femoral arteries. In the distal SFA there is a elevation of velocity at and beyond a atherosclerotic plaque. The this changes to monophasic waveforms. There is a second elevation of velocity in the proximal popliteal artery. There is velocity drop-off in the distal popliteal artery. Monophasic waveforms are seen to the posterior tibial and dorsal pedal arteries IMPRESSION: Significant stenosis in the distal SFA and again in the proximal popliteal artery
--- NOTE | 2020-10-02 12:15 | PCM.PN ---
- General Info Date of Service: 10/02/20 Subjective Update: No acute events overnight. No fevers. Patient does not report any pain in the right foot or right leg. He has been able to walk to the bathroom and back without any difficulty. Blood sugars have been very well controlled. Ultrasound of the arterial supply of the right leg showed severe stenosis of the distal SFA and proximal popliteal. I did discuss his case with interventional radiology at [facility] in [place]. Functional Status: Reports: Pain Controlled, Tolerating Diet - Review of Systems General: Denies: Fever - Patient Data Vitals - Most Recent: Last Vital Signs Temp 36.9 C 10/02/20 11:00 Pulse 78 10/02/20 11:00 Resp 16 10/02/20 11:00 BP 115/49 L 10/02/20 11:00 Pulse Ox 96 10/02/20 11:00 Weight - Most Recent: 105.5 kg I&O - Last 24 Hours: Intake & Output 10/01/20 10/02/20 10/02/20 22:59 06:59 14:59 Intake Total 880 2150 Balance 880 2150 Lab Results Last 24 Hours: Laboratory Results - last 24 hr 10/01/20 10/01/20 10/02/20 Range/Units 16:43 20:58 05:00 WBC 13.3 H (4.5-11.0) K/uL RBC 4.64 (4.30-5.90) M/uL Hgb 14.4 (12.0-15.0) g/dL Hct 43.4 (40.0-54.0) % MCV 94 (80-98) fL MCH 31 (27-31) pg MCHC 33 (32-36) % Plt Count 245 (150-400) K/uL Sodium (140-148) mmol/L Potassium (3.6-5.2) mmol/L Chloride (100-108) mmol/L Carbon Dioxide (21-32) mmol/L Anion Gap (5.0-14.0) mmol/L BUN (7-18) mg/dL Creatinine (0.8-1.3) mg/dL Est Cr Clr Drug Dosing mL/min Estimated GFR (MDRD) (>60) Glucose (74-106) mg/dL POC Glucose 157 H 126 H (74-106) mg/dL Calcium (8.5-10.1) mg/dL 10/02/20 10/02/20 10/02/20 Range/Units 05:00 07:51 11:37 WBC (4.5-11.0) K/uL RBC (4.30-5.90) M/uL Hgb (12.0-15.0) g/dL Hct (40.0-54.0) % MCV (80-98) fL MCH (27-31) pg MCHC (32-36) % Plt Count (150-400) K/uL Sodium 140 (140-148) mmol/L Potassium 4.5 (3.6-5.2) mmol/L Chloride 103 (100-108) mmol/L Carbon Dioxide 30 (21-32) mmol/L Anion Gap 7.2 (5.0-14.0) mmol/L BUN 14 (7-18) mg/dL Creatinine 1.5 H (0.8-1.3) mg/dL Est Cr Clr Drug Dosing 62.49 mL/min Estimated GFR (MDRD) 50 L (>60) Glucose 101 (74-106) mg/dL POC Glucose 113 H 145 H (74-106) mg/dL Calcium 9.1 (8.5-10.1) mg/dL Kody Results Last 24 Hours: Microbiology 09/30/20 09:28 Aerobic Blood Culture - Preliminary Blood - Arm, Right NO GROWTH AFTER 2 DAYS Anaerobic Blood Culture - Preliminary NO GROWTH AFTER 2 DAYS 10/01/20 05:56 Aerobic Blood Culture - Preliminary Blood - Arm, Right NO GROWTH AFTER 1 DAY Anaerobic Blood Culture - Preliminary NO GROWTH AFTER 1 DAY 09/27/20 13:40 Aerobic Blood Culture - Preliminary Blood - Arm, Right NO GROWTH AFTER 4 DAYS Anaerobic Blood Culture - Final (Mrsa) Staphylococcus Aureus 09/27/20 13:45 Aerobic Blood Culture - Final Blood - Arm, Left (Mrsa) Staphylococcus Aureus Anaerobic Blood Culture - Preliminary NO GROWTH AFTER 4 DAYS Med Orders - Current: Current Medications Acetaminophen (Acetaminophen 325 Mg Tab) 650 mg PO Q4H PRN PRN Reason: Fever Last Admin: 09/27/20 14:53 Dose: 650 mg Documented by: Allopurinol (Allopurinol 100 Mg Tab) 100 mg PO DAILY KIRK Last Admin: 10/02/20 08:29 Dose: 100 mg Documented by: Amlodipine Besylate (Amlodipine 5 Mg Tab) 10 mg PO DAILY [facility] Last Admin: 10/02/20 08:29 Dose: 10 mg Documented by: Aspirin (Aspirin 81 Mg Tab.Chew) 81 mg PO DAILY [facility] Last Admin: 10/02/20 08:27 Dose: 81 mg Documented by: Atorvastatin Calcium (Atorvastatin 20 Mg Tab) 80 mg PO BEDTIME [facility] Last Admin: 10/01/20 21:46 Dose: 80 mg Documented by: Cholecalciferol (Cholecalciferol (Vitamin D3) 25 Mcg Tab) 50 mcg PO DAILY [facility] Last Admin: 10/02/20 08:30 Dose: 50 mcg Documented by: Dextrose/Water (50% Dextrose In Water 50 Ml Syringe) 50 ml IVPUSH ASDIRECTED PRN PRN Reason: Hypoglycemia Docusate Sodium (Docusate Sodium 100 Mg Cap) 100 mg PO DAILY [facility] Last Admin: 10/02/20 08:27 Dose: 100 mg Documented by: Enoxaparin Sodium (Enoxaparin 40 Mg/0.4 Ml Syringe) 40 mg SUBCUT Q24H [facility] Last Admin: 10/01/20 17:13 Dose: 40 mg Documented by: Furosemide (Furosemide 20 Mg Tab) 20 mg PO DAILY [facility] Last Admin: 10/02/20 08:28 Dose: 20 mg Documented by: Glucagon (Glucagon,Human Recombinant 1 Mg Vial) 1 mg IM ASDIRECTED PRN PRN Reason: Hypoglycemia Vancomycin HCl 1.6 gm/ Sodium (Chloride) 250 mls @ 166.667 mls/hr IV Q12H [facility] Last Admin: 10/02/20 10:55 Dose: 166.667 mls/hr Documented by: Insulin Glargine (Insulin Glargine,Human Rec. Analog 100 Units/Ml 3 Ml Pen) 30 units SUBCUT BEDTIME [facility] Last Admin: 10/01/20 21:44 Dose: 30 units Documented by: Insulin Human Lispro (Insulin Lispro 100 Unit/Ml 3 Ml Kwikpen) 0 unit SUBCUT QIDACANDBED [facility]; Protocol Last Admin: 10/02/20 11:42 Dose: Not Given Documented by: Lisinopril (Lisinopril 20 Mg Tab) 20 mg PO DAILY [facility] Last Admin: 10/02/20 08:30 Dose: 20 mg Documented by: Metoprolol Succinate (Metoprolol Succinate 50 Mg Tab.Er) 200 mg PO DAILY [facility] Last Admin: 10/02/20 08:31 Dose: 200 mg Documented by: Spironolactone (Spironolactone 25 Mg Tab) 25 mg PO DAILY [facility] Last Admin: 10/02/20 08:28 Dose: 25 mg Documented by: Discontinued Medications Bacitracin (Bacitracin Oint 1 Gm U/D Packet) 1 dose TOP ONETIME ONE Stop: 09/27/20 13:33 Last Admin: 09/27/20 13:44 Dose: 1 dose Documented by: Diphtheria/Tetanus/Acell Pertussis (Diphtheria,Pertussis(Acell),Tetanus Vaccine 0.5 Ml Syringe) 0.5 ml IM .ONCE ONE Stop: 09/27/20 11:36 Last Admin: 09/27/20 12:02 Dose: 0.5 ml Documented by: Lactated Ringer's (Ringers, Lactated) 1,000 mls @ 1,000 mls/hr IV ASDIRECTED [facility] Last Admin: 09/27/20 12:58 Dose: 1,000 mls/hr Documented by: Cefepime HCl 2 gm/ Sodium (Chloride) 50 mls @ 100 mls/hr IV Q12H [facility] Last Admin: 10/01/20 04:08 Dose: 100 mls/hr Documented by: Sodium Chloride (Normal Saline) 1,000 mls @ 100 mls/hr IV ASDIRECTED [facility] Last Infusion: 10/01/20 11:17 Dose: 50 mls/hr Documented by: Vancomycin HCl 2.1 gm/ Sodium (Chloride) 500 mls @ 250 mls/hr IV ONETIME ONE Stop: 09/27/20 17:59 Last Admin: 09/27/20 16:59 Dose: 250 mls/hr Documented by: Vancomycin HCl 1.6 gm/ Sodium (Chloride) 250 mls @ 166.667 mls/hr IV Q12H [facility] Last Admin: 09/29/20 17:28 Dose: Not Given Documented by: Vancomycin HCl 1.6 gm/ Sodium (Chloride) 250 mls @ 166.667 mls/hr IV Q18H [facility] Last Admin: 09/30/20 16:53 Dose: 166.667 mls/hr Documented by: Sodium Chloride (Normal Saline) 1,000 mls @ 50 mls/hr IV ASDIRECTED [facility] Last Admin: 10/02/20 08:33 Dose: 50 mls/hr Documented by: Insulin Human Lispro (Insulin Lispro 100 Unit/Ml 3 Ml Kwikpen) 0 unit SUBCUT ASDIRECTED KIRK; Protocol Lidocaine HCl (Lidocaine 2% 20 Ml Mdv) 5 ml SUBCUT ONETIME ONE Stop: 09/27/20 12:11 Last Admin: 09/27/20 12:25 Dose: 5 ml Documented by: Vancomycin HCl (Vancomycin 1 Gm Sdv) 0 gm IV .PHARMACY TO DOSE KIRK Stop: 09/27/20 18:00 - Exam Quality Assessment: No: Supplemental Oxygen General: Alert, Oriented, Cooperative, No Acute Distress Lungs: Normal Respiratory Effort GI/Abdominal Exam: Soft, No Distention - Patient Data Lab Results Last 24 hrs: Laboratory Results - last 24 hr 10/01/20 10/01/20 10/02/20 Range/Units 16:43 20:58 05:00 WBC 13.3 H (4.5-11.0) K/uL RBC 4.64 (4.30-5.90) M/uL Hgb 14.4 (12.0-15.0) g/dL Hct 43.4 (40.0-54.0) % MCV 94 (80-98) fL MCH 31 (27-31) pg MCHC 33 (32-36) % Plt Count 245 (150-400) K/uL Sodium (140-148) mmol/L Potassium (3.6-5.2) mmol/L Chloride (100-108) mmol/L Carbon Dioxide (21-32) mmol/L Anion Gap (5.0-14.0) mmol/L BUN (7-18) mg/dL Creatinine (0.8-1.3) mg/dL Est Cr Clr Drug Dosing mL/min Estimated GFR (MDRD) (>60) Glucose (74-106) mg/dL POC Glucose 157 H 126 H (74-106) mg/dL Calcium (8.5-10.1) mg/dL 10/02/20 10/02/20 10/02/20 Range/Units 05:00 07:51 11:37 WBC (4.5-11.0) K/uL RBC (4.30-5.90) M/uL Hgb (12.0-15.0) g/dL Hct (40.0-54.0) % MCV (80-98) fL MCH (27-31) pg MCHC (32-36) % Plt Count (150-400) K/uL Sodium 140 (140-148) mmol/L Potassium 4.5 (3.6-5.2) mmol/L Chloride 103 (100-108) mmol/L Carbon Dioxide 30 (21-32) mmol/L Anion Gap 7.2 (5.0-14.0) mmol/L BUN 14 (7-18) mg/dL Creatinine 1.5 H (0.8-1.3) mg/dL Est Cr Clr Drug Dosing 62.49 mL/min Estimated GFR (MDRD) 50 L (>60) Glucose 101 (74-106) mg/dL POC Glucose 113 H 145 H (74-106) mg/dL Calcium 9.1 (8.5-10.1) mg/dL Result Diagrams: 10/02/20 05:00 10/02/20 05:00 Kody Results Last 24 hrs: Microbiology 09/30/20 09:28 Aerobic Blood Culture - Preliminary Blood - Arm, Right NO GROWTH AFTER 2 DAYS Anaerobic Blood Culture - Preliminary NO GROWTH AFTER 2 DAYS 10/01/20 05:56 Aerobic Blood Culture - Preliminary Blood - Arm, Right NO GROWTH AFTER 1 DAY Anaerobic Blood Culture - Preliminary NO GROWTH AFTER 1 DAY 09/27/20 13:40 Aerobic Blood Culture - Preliminary Blood - Arm, Right NO GROWTH AFTER 4 DAYS Anaerobic Blood Culture - Final (Mrsa) Staphylococcus Aureus 09/27/20 13:45 Aerobic Blood Culture - Final Blood - Arm, Left (Mrsa) Staphylococcus Aureus Anaerobic Blood Culture - Preliminary NO GROWTH AFTER 4 DAYS Sepsis Event Note - Evaluation Sepsis Screening Result: No Definite Risk - Focused Exam Vital Signs: Vital Signs Temp Pulse Pulse Resp BP BP Pulse Ox 10/02/20 11:00 36.9 C 78 16 115/49 L 96 10/02/20 08:31 81 123/70 10/02/20 08:30 123/70 10/02/20 08:29 123/70 10/02/20 07:00 36.9 C 74 16 132/71 97 10/02/20 02:00 16 - Problem List Review Problem List Initiated/Reviewed/Updated: Yes - My Orders Last 24 Hours: My Active Orders 10/02/20 09:40 Convert IV to Saline Lock [OM.PC] Routine 10/02/20 12:13 CORONAVIRUS COVID-19, MATTEO Routine 10/03/20 05:00 BASIC METABOLIC PANEL,BMP [CHEM] Timed CBC W/O DIFF,HEMOGRAM [HEME] Timed (1) - Plan Plan:: Assessment and plan - MRSA bacteremia secondary to cellulitis of the second left toe with dry gangrene-sepsis has resolved. Complicated by peripheral vascular disease as discussed below. Cultures growing MRSA. Repeat cultures negative so far. Second toe involved to the greatest extent but also fifth toe and to a mild extent the fourth toe on the right foot. -Continue vancomycin -Follow-up repeat cultures -Patient will likely need surgical intervention for the gangrenous second toe and possibly additional toes -Echocardiogram has been ordered for Friday to rule out endocarditis or valvular vegetations-he does have a history of CABG Dry gangrene with surrounding cellulitis of the second toe-likely secondary to injury in the setting of diabetic peripheral neuropathy and vascular insufficiency in the setting of arterial vascular disease. Ultrasound today showed monophasic waveforms with severe stenosis at the distal SFA and proximal popliteal artery. -Transferred to [facility] for interventional radiology and podiatry management when a bed is available Acute on chronic kidney disease likely stage IIIa-creatinine back to baseline. -We will continue to monitor via basic metabolic panel Uncontrolled diabetes mellitus type 2 with peripheral neuropathy-blood sugar control much better with transition to subcutaneous insulin. - continue 30 units of glargine at bedtime and sliding scale insulin low-dose with meals-tolerating well -Monitoring blood sugars 3 times daily AC -Goal blood sugar is under 180 to facilitate healing, he has been meeting this goal Heart failure with reduced ejection fraction-combined diastolic and systolic secondary to coronary artery disease status post CABG and hypertensive c ardiomyopathy. Stable at this time. -Continue medical management Essential hypertension-stable -Continue amlodipine 10 mg Gout-stable -Continue allopurinol 100 mg Psoriasis-He has typical lesions on the upper and lower extremities concentrated in the area of the anterior lower leg and hands. -He does not take medications for this Obesity class I-BMI: 32. -Will be on an 1800 calorie/day diet for diabetes and obesity CODE STATUS: Full code VTE prophylaxis: SCDs on the right contraindicated, enoxaparin Diet: Heart healthy diet, 1800 bebeto/day Disposition: I anticipate the patient will be transferred to [facility] when a bed is available for further evaluation by interventional radiology and podiatry. Farooq Dominguez MD
[2020-10-02] MEDS: Enoxaparin 40 MG/0.4 ML Syringe SUBCUT SCH (17:28)
--- NOTE | 2020-10-02 20:50 | PCM.DCSUM1 ---
Discharge Summary - Hospital Course Brief History: 50 year old male with history of poorly controlled type two diabetes mellitus, coronary artery disease in stage three chronic kidney disease who presented with fevers, chills and malaise. He was admitted for management of dry gangrene and cellulitis of the right second toe as well as sepsis. Diagnosis: Stroke: No - Discharge Data Discharge Date: 10/02/20 Discharge Disposition: DC/Tfer to Acute Hospital 02 Condition: Stable - Referral to [facility] Primary Care Physician: Sonam Cano MD - Discharge Diagnosis/Problem(s) (1) MRSA cellulitis of left foot SNOMED Code(s): 995003440, 539851016 ICD Code: L03.116 - CELLULITIS OF LEFT LOWER LIMB; B95.62 - METHICILLIN RESIS STAPH INFCT CAUSING DISEASES CLASSD ELSWHR Status: Acute Current Visit: Yes (2) Sepsis due to Staphylococcus SNOMED Code(s): 275738111 ICD Code: A41.2 - SEPSIS DUE TO UNSPECIFIED STAPHYLOCOCCUS Status: Acute Current Visit: Yes (3) MRSA bacteremia SNOMED Code(s): 12305990798743180 ICD Code: R78.81 - BACTEREMIA; B95.62 - METHICILLIN RESIS STAPH INFCT CAUSING DISEASES CLASSD ELSWHR Status: Acute Current Visit: Yes (4) Dry gangrene SNOMED Code(s): 072032464, 597198206 ICD Code: I96 - GANGRENE, NOT ELSEWHERE CLASSIFIED Status: Acute Current Visit: Yes (5) Hyperglycemia SNOMED Code(s): 32053185 ICD Code: R73.9 - HYPERGLYCEMIA, UNSPECIFIED Status: Acute Current Visit: Yes (6) CKD (chronic kidney disease) stage 3, GFR 30-59 ml/min SNOMED Code(s): 224068325 ICD Code: N18.30 - CHRONIC KIDNEY DISEASE, STAGE 3 UNSPECIFIED Status: Chronic Current Visit: No (7) Hx of CABG SNOMED Code(s): 208316839, 118173393 ICD Code: Z95.1 - PRESENCE OF AORTOCORONARY BYPASS GRAFT Status: Chronic Current Visit: No (8) Chronic combined systolic and diastolic heart failure SNOMED Code(s): 337307623346893 ICD Code: I50.42 - CHRONIC COMBINED SYSTOLIC AND DIASTOLIC HRT FAIL Status: Chronic Current Visit: No (9) Type 2 diabetes mellitus SNOMED Code(s): 84491410 ICD Code: E11.9 - TYPE 2 DIABETES MELLITUS WITHOUT COMPLICATIONS Status: Chronic Current Visit: No Qualifiers: Diabetes mellitus intermission coordinator insulin use: without prison use Diabetes mellitus complication status: with neurologic complications Diabetes mellitus complication detail: with polyneuropathy Qualified Code(s): E11.42 - Type 2 diabetes mellitus with diabetic polyneuropathy - Patient Summary/Data Operative Procedure(s) Performed: PICC line was placed on 10/02 Labs Pending at D/C: follow up blood cultures from the and 01 of October are negative at the time of discharge but final result is still pending Hospital Course: Tawanda presented to the emergency room with fevers, chills and malaise. Woke up in the emergency room was suggestive of sepsis with tachycardia, tachypnea with the likely source being cellulitis of the right second toe with accompanying dry gangrene. his white count was mildly elevated. Lactic acid was normal. X-ray imaging did not suggest osteomyelitis. he was started on cefepime after cultures were obtained. He received IV fluids for the sepsis protocol. He was admitted for further management. The day after admission his sepsis had resolved. His blood cultures have returned positive for gram-positive cocci saw anabiotics were changed to vancomycin. The next day the blood cultures returned groin MRI say. Vancomycin was continued. Clinically he was stable with no pain. Repeat blood cultures were obtained on September 30 and again on October 01. on October 02 we were able to obtain ultrasound studies of the arterial system of the right leg. This did reveal severe stenosis of the distal superficial femoral artery as well as the proximal popliteal artery. Monophasic waveforms and very high velocitys were seen in these areas. Dr Soler was consult it regarding further management. There was evidence for dry gangrene of the right second toe as well as the potential for tissue injury involving the right fourth and fifth toes. It was felt that surgery was indicated to help manage the dry gangrene and the patient might be best served in the center where both interventional radiology was available along with podiatry. The case was discussed with interventional radiology at [facility] in [place]. his care was graciously excepted in transfer. The patient will be transferred for further evaluation and likely both surgical and vascular intervention. he is stable and safe for transfer at this time and the benefits of transfer far away the risks. follow up blood cultures have been negative at 24 and 48 hours. A PICC was placed the morning of discharge and appears to be functioning well. The patient does have a card in his possession with information about the catheter. - Patient Instructions Other/Special Instructions: transfer to [facility] - Discharge Plan *PRESCRIPTION DRUG MONITORING PROGRAM REVIEWED*: Not Applicable *COPY OF PRESCRIPTION DRUG MONITORING REPORT IN PATIENT CHAVEZ: Not Applicable Home Medications: Home Meds Aspirin 81 mg PO DAILY 09/27/20 [History] Cholecalciferol (Vitamin D3) [Vitamin D] 2,000 unit PO DAILY 09/27/20 [History] Docusate Sodium [Colace] 100 mg PO DAILY 09/27/20 [History] Dulaglutide [Trulicity] 1.5 mg SQ WEEKLY 09/27/20 [History] Furosemide 20 mg PO DAILY 09/27/20 [History] Glimepiride 1 mg PO DAILY 09/27/20 [History] Metoprolol Succinate 200 mg PO DAILY 09/27/20 [History] Spironolactone [Aldactone] 25 mg PO DAILY 09/27/20 [History] allopurinoL [Zyloprim] 100 mg PO DAILY 09/27/20 [History] amLODIPine [Norvasc] 10 mg PO DAILY 09/27/20 [History] atorvaSTATin [Lipitor] 80 mg PO BEDTIME 09/27/20 [History] lisinopriL [Lisinopril] 20 mg PO DAILY 09/27/20 [History] Patient Handouts: Cellulitis, Adult, MRSA Infection, Diagnosis, Adult Referrals: Marlon Soler DPM [Physician] - 10/02/20 9:30 am (Your appointment with Dr. Ryder lafleur be at the [facility] on [address].) Sonam Cano MD [Primary Care Provider] - 10/10/20 1:30 pm Maggie Robison RN [Registered Nurse] - 10/10/20 4:00 pm (Please bring your blood sugar log book and meter with to your appointment. Call Tia with blood sugars 2-3 days after getting home from the hospital ([phone])) - Discharge Summary/Plan Comment DC Time >30 min.: Yes (45-transferred to acute hospital) - Patient Data Vitals - Most Recent: Last Vital Signs Temp 36.5 C 10/02/20 15:53 Pulse 81 10/02/20 15:53 Resp 16 10/02/20 15:53 BP 124/69 10/02/20 15:53 Pulse Ox 99 10/02/20 15:53 Weight - Most Recent: 105.5 kg I&O - Last 24 hours: Intake & Output 10/02/20 10/02/20 10/02/20 06:59 14:59 22:59 Intake Total 2150 432 Balance 2150 432 Lab Results - Last 24 hrs: Laboratory Results - last 24 hr 10/01/20 10/02/20 10/02/20 Range/Units 20:58 05:00 05:00 WBC 13.3 H (4.5-11.0) K/uL RBC 4.64 (4.30-5.90) M/uL Hgb 14.4 (12.0-15.0) g/dL Hct 43.4 (40.0-54.0) % MCV 94 (80-98) fL MCH 31 (27-31) pg MCHC 33 (32-36) % Plt Count 245 (150-400) K/uL Sodium 140 (140-148) mmol/L Potassium 4.5 (3.6-5.2) mmol/L Chloride 103 (100-108) mmol/L Carbon Dioxide 30 (21-32) mmol/L Anion Gap 7.2 (5.0-14.0) mmol/L BUN 14 (7-18) mg/dL Creatinine 1.5 H (0.8-1.3) mg/dL Est Cr Clr Drug Dosing 62.49 mL/min Estimated GFR (MDRD) 50 L (>60) Glucose 101 (74-106) mg/dL POC Glucose 126 H (74-106) mg/dL Calcium 9.1 (8.5-10.1) mg/dL 10/02/20 10/02/20 10/02/20 Range/Units 07:51 11:37 16:39 WBC (4.5-11.0) K/uL RBC (4.30-5.90) M/uL Hgb (12.0-15.0) g/dL Hct (40.0-54.0) % MCV (80-98) fL MCH (27-31) pg MCHC (32-36) % Plt Count (150-400) K/uL Sodium (140-148) mmol/L Potassium (3.6-5.2) mmol/L Chloride (100-108) mmol/L Carbon Dioxide (21-32) mmol/L Anion Gap (5.0-14.0) mmol/L BUN (7-18) mg/dL Creatinine (0.8-1.3) mg/dL Est Cr Clr Drug Dosing mL/min Estimated GFR (MDRD) (>60) Glucose (74-106) mg/dL POC Glucose 113 H 145 H 199 H (74-106) mg/dL Calcium (8.5-10.1) mg/dL SILKE Results - Last 24 hrs: Microbiology 09/27/20 13:45 Aerobic Blood Culture - Final Blood - Arm, Left (Mrsa) Staphylococcus Aureus Anaerobic Blood Culture - Final NO GROWTH AFTER 5 DAYS 09/27/20 13:40 Aerobic Blood Culture - Final Blood - Arm, Right NO GROWTH AFTER 5 DAYS Anaerobic Blood Culture - Final (Mrsa) Staphylococcus Aureus 09/30/20 09:28 Aerobic Blood Culture - Preliminary Blood - Arm, Right NO GROWTH AFTER 2 DAYS Anaerobic Blood Culture - Preliminary NO GROWTH AFTER 2 DAYS 10/01/20 05:56 Aerobic Blood Culture - Preliminary Blood - Arm, Right NO GROWTH AFTER 1 DAY Anaerobic Blood Culture - Preliminary NO GROWTH AFTER 1 DAY Med Orders - Current: Current Medications Acetaminophen (Acetaminophen 325 Mg Tab) 650 mg PO Q4H PRN PRN Reason: Fever Last Admin: 09/27/20 14:53 Dose: 650 mg Documented by: Allopurinol (Allopurinol 100 Mg Tab) 100 mg PO DAILY [facility] Last Admin: 10/02/20 08:29 Dose: 100 mg Documented by: Amlodipine Besylate (Amlodipine 5 Mg Tab) 10 mg PO DAILY [facility] Last Admin: 10/02/20 08:29 Dose: 10 mg Documented by: Aspirin (Aspirin 81 Mg Tab.Chew) 81 mg PO DAILY [facility] Last Admin: 10/02/20 08:27 Dose: 81 mg Documented by: Atorvastatin Calcium (Atorvastatin 20 Mg Tab) 80 mg PO BEDTIME [facility] Last Admin: 10/01/20 21:46 Dose: 80 mg Documented by: Cholecalciferol (Cholecalciferol (Vitamin D3) 25 Mcg Tab) 50 mcg PO DAILY [facility] Last Admin: 10/02/20 08:30 Dose: 50 mcg Documented by: Dextrose/Water (50% Dextrose In Water 50 Ml Syringe) 50 ml IVPUSH ASDIRECTED PRN PRN Reason: Hypoglycemia Docusate Sodium (Docusate Sodium 100 Mg Cap) 100 mg PO DAILY [facility] Last Admin: 10/02/20 08:27 Dose: 100 mg Documented by: Enoxaparin Sodium (Enoxaparin 40 Mg/0.4 Ml Syringe) 40 mg SUBCUT Q24H [facility] Last Admin: 10/02/20 17:28 Dose: 40 mg Documented by: Furosemide (Furosemide 20 Mg Tab) 20 mg PO DAILY [facility] Last Admin: 10/02/20 08:28 Dose: 20 mg Documented by: Glucagon (Glucagon,Human Recombinant 1 Mg Vial) 1 mg IM ASDIRECTED PRN PRN Reason: Hypoglycemia Vancomycin HCl 1.6 gm/ Sodium (Chloride) 250 mls @ 166.667 mls/hr IV Q12H [facility] Last Admin: 10/02/20 10:55 Dose: 166.667 mls/hr Documented by: Insulin Glargine (Insulin Glargine,Human Rec. Analog 100 Units/Ml 3 Ml Pen) 30 units SUBCUT BEDTIME [facility] Last Admin: 10/01/20 21:44 Dose: 30 units Documented by: Insulin Human Lispro (Insulin Lispro 100 Unit/Ml 3 Ml Kwikpen) 0 unit SUBCUT QIDACANDBED [facility]; Protocol Last Admin: 10/02/20 17:29 Dose: 1 unit Documented by: Lisinopril (Lisinopril 20 Mg Tab) 20 mg PO DAILY [facility] Last Admin: 10/02/20 08:30 Dose: 20 mg Documented by: Metoprolol Succinate (Metoprolol Succinate 50 Mg Tab.Er) 200 mg PO DAILY [facility] Last Admin: 10/02/20 08:31 Dose: 200 mg Documented by: Spironolactone (Spironolactone 25 Mg Tab) 25 mg PO DAILY [facility] Last Admin: 10/02/20 08:28 Dose: 25 mg Documented by: Discontinued Medications Bacitracin (Bacitracin Oint 1 Gm U/D Packet) 1 dose TOP ONETIME ONE Stop: 09/27/20 13:33 Last Admin: 09/27/20 13:44 Dose: 1 dose Documented by: Diphtheria/Tetanus/Acell Pertussis (Diphtheria,Pertussis(Acell),Tetanus Vaccine 0.5 Ml Syringe) 0.5 ml IM .ONCE ONE Stop: 09/27/20 11:36 Last Admin: 09/27/20 12:02 Dose: 0.5 ml Documented by: Lactated Ringer's (Ringers, Lactated) 1,000 mls @ 1,000 mls/hr IV ASDIRECTED [facility] Last Admin: 09/27/20 12:58 Dose: 1,000 mls/hr Documented by: Cefepime HCl 2 gm/ Sodium (Chloride) 50 mls @ 100 mls/hr IV Q12H [facility] Last Admin: 10/01/20 04:08 Dose: 100 mls/hr Documented by: Sodium Chloride (Normal Saline) 1,000 mls @ 100 mls/hr IV ASDIRECTED [facility] Last Infusion: 10/01/20 11:17 Dose: 50 mls/hr Documented by: Vancomycin HCl 2.1 gm/ Sodium (Chloride) 500 mls @ 250 mls/hr IV ONETIME ONE Stop: 09/27/20 17:59 Last Admin: 09/27/20 16:59 Dose: 250 mls/hr Documented by: Vancomycin HCl 1.6 gm/ Sodium (Chloride) 250 mls @ 166.667 mls/hr IV Q12H [facility] Last Admin: 09/29/20 17:28 Dose: Not Given Documented by: Vancomycin HCl 1.6 gm/ Sodium (Chloride) 250 mls @ 166.667 mls/hr IV Q18H [facility] Last Admin: 09/30/20 16:53 Dose: 166.667 mls/hr Documented by: Sodium Chloride (Normal Saline) 1,000 mls @ 50 mls/hr IV ASDIRECTED [facility] Last Admin: 10/02/20 08:33 Dose: 50 mls/hr Documented by: Insulin Human Lispro (Insulin Lispro 100 Unit/Ml 3 Ml Kwikpen) 0 unit SUBCUT ASDIRECTED [facility]; Protocol Lidocaine HCl (Lidocaine 2% 20 Ml Mdv) 5 ml SUBCUT ONETIME ONE Stop: 09/27/20 12:11 Last Admin: 09/27/20 12:25 Dose: 5 ml Documented by: Vancomycin HCl (Vancomycin 1 Gm Sdv) 0 gm IV .PHARMACY TO DOSE [facility] Stop: 09/27/20 18:00
[2020-10-02] MEDS: Insulin Glargine,Human Rec. Analog 100 Units/ML 3 ML Pen SUBCUT SCH (21:20)
[2020-10-02] MEDS: atorvaSTATin 20 MG Tab PO SCH (21:21)
== END 2020-10-02 21:30 | DRG 872 ==
LOC: JP.ED 10:46 → JP.MS 13:53
PROVIDERS: ADMIT Internal Medicine; ATTEND Internal Medicine
PROC: 02HV33Z Insertion of Infusion Device into Superior Vena Cava, Percutaneous Approach (ICD-10-PCS; principal; 2020-10-02)
DX: A41.02 Sepsis due to Methicillin resistant Staphylococcus aureus (principal); L03.116 Cellulitis of left lower limb; I50.42 Chronic combined systolic (congestive) and diastolic (congestive) heart failure; I13.0 Hypertensive heart and chronic kidney disease with heart failure and stage 1 through stage 4 chronic kidney disease, or unspecified chronic kidney disease; I43 Cardiomyopathy in diseases classified elsewhere; E11.52 Type 2 diabetes mellitus with diabetic peripheral angiopathy with gangrene; I96 Gangrene, not elsewhere classified; Z95.1 Presence of aortocoronary bypass graft; E11.42 Type 2 diabetes mellitus with diabetic polyneuropathy; E11.22 Type 2 diabetes mellitus with diabetic chronic kidney disease; Z79.82 Long term (current) use of aspirin; Z79.899 Other long term (current) drug therapy; Z79.84 Long term (current) use of oral hypoglycemic drugs; H54.7 Unspecified visual loss; E78.00 Pure hypercholesterolemia, unspecified; E11.21 Type 2 diabetes mellitus with diabetic nephropathy; F17.210 Nicotine dependence, cigarettes, uncomplicated; M10.9 Gout, unspecified; L40.9 Psoriasis, unspecified; N18.31 Chronic kidney disease, stage 3a; E11.65 Type 2 diabetes mellitus with hyperglycemia
CPT/HCPCS: 11042; 36415; 36569; 64450; 73660-26-T6; 73660-T6; 80048; 80202; 81001; 82947; 83605; 84484; 85027; 86140; 87040; 87186; 90471; 90715; 93306; 93926-26; 93926-RT; 99285; 99285-25; A9270-GY; J0692; J1650; J1815; J1815-GY; J3370; J7030; J7040; J7050; J7120

== ENCOUNTER 2021-09-06 20:52 | Emergency (ER) | payer OTHER ==
[2021-09-06] MEDS ORDERED: HYDROmorphone 1 MG/ML Syringe IVPUSH ONE (21:32)
[2021-09-06] MEDS ORDERED: Methocarbamol 500 MG Tab PO ONE (21:32)
[2021-09-06] MEDS ORDERED: Sodium Chloride 0.9% 10 ML Syringe FLUSH PRN (21:33)
== END 2021-09-06 23:47 | disposition home or self-care (01) ==
LOC: JP.ED 20:52
DX: M47.26 Other spondylosis with radiculopathy, lumbar region (principal); M48.061 Spinal stenosis, lumbar region without neurogenic claudication; E78.00 Pure hypercholesterolemia, unspecified; E11.22 Type 2 diabetes mellitus with diabetic chronic kidney disease; I12.9 Hypertensive chronic kidney disease with stage 1 through stage 4 chronic kidney disease, or unspecified chronic kidney disease; N18.9 Chronic kidney disease, unspecified; E11.40 Type 2 diabetes mellitus with diabetic neuropathy, unspecified; E66.9 Obesity, unspecified; Z79.82 Long term (current) use of aspirin; Z79.899 Other long term (current) drug therapy; Z68.34 Body mass index [BMI] 34.0-34.9, adult
CPT/HCPCS: 72131; 96374; 99283-25; A9270-GY; J1170; J3490

== ENCOUNTER 2022-09-25 18:34 | Emergency (ER) | payer OTHER ==
[2022-09-25] MEDS ORDERED: Sodium Chloride 0.9% 1,000 ML IV ONE ×2 (20:06→21:19)
[2022-09-25] MEDS ORDERED: Sodium Chloride 0.9% 10 ML Syringe FLUSH PRN (20:07)
[2022-09-25] MEDS ORDERED: Meropenem 1 GM in Sodium Chloride 0.9% 100 ML IV STA (20:15)
[2022-09-25] MEDS ORDERED: Vancomycin 2 GM in Sodium Chloride 0.9% 500 ML IV ONE (20:23)
[2022-09-25] MEDS ORDERED: HYDROmorphone 0.5 MG/0.5 ML Syringe IVPUSH STA (20:23)
[2022-09-25 20:25] LABS: BASOPHILS ABSOLUTE AUTO 0.05 K/uL (0.00-0.10); BASOPHILS PERCENT AUTO 0.3 % (0.1-1.3); EOSINOPHILS PERCENT AUTO 0.1 % (0.0-5.4); HEMATOCRIT 41.1 % (38.4-49.7); HEMOGLOBIN 13.8 g/dL (12.9-16.9); IMMATURE GRAN ABSOLUTE AUTO 0.14 K/uL (0.00-0.23); IMMATURE GRAN PERCENT AUTO 0.7 % (0.0-0.7); LYMPHOCYTES PERCENT AUTO 9.6 % (11.4-47.7); MEAN CORPUSCULAR HEMOGLOBIN 31.1 pg (31.6-35.5); MEAN CORPUSCULAR HGB CONC 33.6 g/dL (31.6-35.5); MEAN CORPUSCULAR VOLUME 92.6 fL (81.4-99.0); MONOCYTES PERCENT AUTO 10.1 % (3.3-12.6); NEUTROPHILS ABSOLUTE AUTO 14.87 K/uL (1.0-7.6); NEUTROPHILS PERCENT AUTO 79.2 % (40.0-78.1); PLATELET COUNT,PLT 168 K/uL (130-375); RED BLOOD CELL COUNT 4.44 M/uL (4.14-5.76); WHITE BLOOD CELL COUNT,WBC 18.8 K/uL (3.2-11.0)
[2022-09-25 20:27] LABS: EOSINOPHILS ABSOLUTE AUTO 0.01 K/uL (0.00-0.40)
[2022-09-25] MEDS ORDERED: Ondansetron 4 MG/2 ML SDV IVPUSH PRN (20:29)
[2022-09-25 20:49] LABS: A/G RATIO 0.6 (1.2-2.2); ALANINE AMINOTRANSFERASE,ALT 24 U/L (12-78); ALKALINE PHOSPHATASE 82 U/L (46-116); ASPARTATE AMNIOTRANSFERASE,AST 23 U/L (15-37); BILIRUBIN TOTAL 2.3 mg/dL (0.2-1.0); BLOOD UREA NITROGEN,BUN 42 mg/dL (7-18); CALCIUM 9.2 mg/dL (8.5-10.1); CARBON DIOXIDE,CO2 25 mmol/L (21-32); CHLORIDE,CL 95 mmol/L (100-108); CREATININE 2.7 mg/dL (0.8-1.3); EST CRCL DRUG DOSING (CG) 34.47 mL/min; ESTIMATED GFR 28 mL/min (>60); GLUCOSE RANDOM 202 mg/dL (74-106); POTASSIUM,K 4.3 mmol/L (3.6-5.2); PROTEIN TOTAL,TP 7.8 g/dL (6.4-8.2); SODIUM,NA 132 mmol/L (140-148)
[2022-09-25 20:54] LABS: LACTIC ACID 1.8 mmol/L (0.4-2.0)
[2022-09-25 21:02] LABS: ANION GAP 16.3 mmol/L (5.0-14.0)
[2022-09-25] MEDS ORDERED: Doxycycline 100 MG in Sodium Chloride 0.9% 100 ML IV STA (21:57)
[2022-09-25] MEDS ORDERED: Doxycycline 100 MG Vial ONE (22:23)
[2022-09-25 22:57] LABS: CALCIUM 8.2 mg/dL (8.5-10.1); CREATININE 2.4 mg/dL (0.8-1.3); EST CRCL DRUG DOSING (CG) 38.78 mL/min; POTASSIUM,K 4.2 mmol/L (3.6-5.2)
[2022-09-25 23:01] LABS: ANION GAP 13.2 mmol/L (5.0-14.0)
[2022-09-25] MEDS ORDERED: Sodium Chloride 0.9% 1,000 ML IV SCH (23:15)
[2022-09-25] MEDS ORDERED: Sodium Chloride 0.9% 100 ML ONE (23:16)
== END 2022-09-26 01:38 ==
LOC: JP.ED 18:34
DX: A41.9 Sepsis, unspecified organism (principal); R65.20 Severe sepsis without septic shock; N17.9 Acute kidney failure, unspecified; E11.42 Type 2 diabetes mellitus with diabetic polyneuropathy; R79.82 Elevated C-reactive protein (CRP); L02.611 Cutaneous abscess of right foot; L03.115 Cellulitis of right lower limb; E66.9 Obesity, unspecified; E78.00 Pure hypercholesterolemia, unspecified; I10 Essential (primary) hypertension; Z68.31 Body mass index [BMI] 31.0-31.9, adult; Z79.82 Long term (current) use of aspirin; Z79.899 Other long term (current) drug therapy
CPT/HCPCS: 36415; 80048; 80053; 83605; 85025; 86140; 87040; 87070; 87077; 87186; 87205; 87635; 96361; 96365; 96367; 96375; 99284; J1170; J2185; J3490; J7030; U0002

== ENCOUNTER 2022-11-30 18:25 | Emergency (ER) | payer OTHER ==
[2022-11-30] MEDS ORDERED: Sodium Chloride 0.9% 10 ML Syringe FLUSH PRN ×2 (19:13→19:16)
[2022-11-30] MEDS ORDERED: Lactated Ringers 1,000 ML IV ONE ×2 (19:15→21:04)
[2022-11-30] MEDS ORDERED: Vancomycin 2 GM in Sodium Chloride 0.9% 500 ML IV ONE (19:18)
[2022-11-30] MEDS ORDERED: Clindamycin Phosphate in D5W 900 MG in Premix Bag 1 BAG IV ONE ×2 (19:32)
[2022-11-30] MEDS ORDERED: Piperacillin/Tazobactam 3.375 GM in Sodium Chloride 0.9% 50 ML IV ONE (19:33)
[2022-11-30 19:47] LABS: BASOPHILS ABSOLUTE AUTO 0.05 K/uL (0.00-0.10); BASOPHILS PERCENT AUTO 0.3 % (0.1-1.3); EOSINOPHILS PERCENT AUTO 0.1 % (0.0-5.4); HEMATOCRIT 42.1 % (38.4-49.7); HEMOGLOBIN 14.4 g/dL (12.9-16.9); IMMATURE GRAN ABSOLUTE AUTO 0.09 K/uL (0.00-0.23); IMMATURE GRAN PERCENT AUTO 0.5 % (0.0-0.7); LYMPHOCYTES ABSOLUTE AUTO 1.49 K/uL (0.8-3.3); LYMPHOCYTES PERCENT AUTO 7.8 % (11.4-47.7); MEAN CORPUSCULAR HEMOGLOBIN 31.4 pg (31.6-35.5); MEAN CORPUSCULAR HGB CONC 34.2 g/dL (31.6-35.5); MEAN CORPUSCULAR VOLUME 91.7 fL (81.4-99.0); MONOCYTES PERCENT AUTO 9.4 % (3.3-12.6); NEUTROPHILS ABSOLUTE AUTO 15.66 K/uL (1.0-7.6); NEUTROPHILS PERCENT AUTO 81.9 % (40.0-78.1); PLATELET COUNT,PLT 229 K/uL (130-375); RED BLOOD CELL COUNT 4.59 M/uL (4.14-5.76); WHITE BLOOD CELL COUNT,WBC 19.1 K/uL (3.2-11.0)
[2022-11-30 19:52] LABS: EOSINOPHILS ABSOLUTE AUTO 0.01 K/uL (0.00-0.40)
[2022-11-30 19:55] LABS: LACTIC ACID 2.6 mmol/L (0.4-2.0)
[2022-11-30 20:12] LABS: A/G RATIO 0.6 (1.2-2.2); ALANINE AMINOTRANSFERASE,ALT 24 U/L (12-78); ALBUMIN 3.1 g/dL (3.4-5.0); ALKALINE PHOSPHATASE 95 U/L (46-116); ASPARTATE AMNIOTRANSFERASE,AST 15 U/L (15-37); BILIRUBIN TOTAL 3.3 mg/dL (0.2-1.0); BLOOD UREA NITROGEN,BUN 36 mg/dL (7-18); CALCIUM 9.4 mg/dL (8.5-10.1); CARBON DIOXIDE,CO2 26 mmol/L (21-32); CHLORIDE,CL 93 mmol/L (100-108); CREATININE 2.8 mg/dL (0.8-1.3); EST CRCL DRUG DOSING (CG) 33.87 mL/min; ESTIMATED GFR 26 mL/min (>60); GLUCOSE RANDOM 271 mg/dL (74-106); POTASSIUM,K 4.4 mmol/L (3.6-5.2); PROTEIN TOTAL,TP 8.3 g/dL (6.4-8.2); SODIUM,NA 131 mmol/L (140-148)
[2022-11-30 20:17] LABS: ANION GAP 16.4 mmol/L (5.0-14.0)
[2022-11-30] MEDS ORDERED: Acetaminophen 500 MG Tab PO ONE (21:17)
[2022-11-30] MEDS ORDERED: Ondansetron 4 MG/2 ML SDV IVPUSH ONE (21:28)
== END 2022-11-30 22:32 ==
LOC: JP.ED 18:25
DX: A41.9 Sepsis, unspecified organism (principal); E11.621 Type 2 diabetes mellitus with foot ulcer; I25.10 Atherosclerotic heart disease of native coronary artery without angina pectoris; I12.9 Hypertensive chronic kidney disease with stage 1 through stage 4 chronic kidney disease, or unspecified chronic kidney disease; E11.22 Type 2 diabetes mellitus with diabetic chronic kidney disease; N18.32 Chronic kidney disease, stage 3b; E78.00 Pure hypercholesterolemia, unspecified; Z95.1 Presence of aortocoronary bypass graft; Z79.82 Long term (current) use of aspirin; Z79.899 Other long term (current) drug therapy
CPT/HCPCS: 36415; 73630; 80053; 82800; 83605; 84145; 85025; 86140; 87040; 87070; 87077; 87186; 87205; 96365; 96367; 96375; 99285; A9270; J2405; J2543; J3370; J3490; J7040; J7120

== ENCOUNTER 2023-06-28 07:02 | Emergency (ER) | payer OTHER ==
[2023-06-28 07:56] LABS: BASOPHILS ABSOLUTE AUTO 0.03 K/uL (0.00-0.10); BASOPHILS PERCENT AUTO 0.2 % (0.1-1.3); EOSINOPHILS ABSOLUTE AUTO 0.12 K/uL (0.00-0.40); HEMATOCRIT 45.9 % (38.4-49.7); HEMOGLOBIN 15.4 g/dL (12.9-16.9); IMMATURE GRAN ABSOLUTE AUTO 0.07 K/uL (0.00-0.23); IMMATURE GRAN PERCENT AUTO 0.6 % (0.0-0.7); LYMPHOCYTES ABSOLUTE AUTO 0.48 K/uL (0.8-3.3); LYMPHOCYTES PERCENT AUTO 3.8 % (11.4-47.7); MEAN CORPUSCULAR HEMOGLOBIN 28.5 pg (31.6-35.5); MEAN CORPUSCULAR HGB CONC 33.6 g/dL (31.6-35.5); MEAN CORPUSCULAR VOLUME 84.8 fL (81.4-99.0); MONOCYTES ABSOLUTE AUTO 0.65 K/uL (0.20-0.90); MONOCYTES PERCENT AUTO 5.2 % (3.3-12.6); NEUTROPHILS ABSOLUTE AUTO 11.15 K/uL (1.0-7.6); NEUTROPHILS PERCENT AUTO 89.2 % (40.0-78.1); PLATELET COUNT,PLT 174 K/uL (130-375); RED BLOOD CELL COUNT 5.41 M/uL (4.14-5.76); WHITE BLOOD CELL COUNT,WBC 12.5 K/uL (3.2-11.0)
[2023-06-28 08:14] LABS: A/G RATIO 0.6 (1.2-2.2); ALANINE AMINOTRANSFERASE,ALT 19 U/L (12-78); ALKALINE PHOSPHATASE 94 U/L (46-116); ASPARTATE AMNIOTRANSFERASE,AST 17 U/L (15-37); BILIRUBIN TOTAL 2.5 mg/dL (0.2-1.0); BLOOD UREA NITROGEN,BUN 31 mg/dL (7-18); CALCIUM 10.3 mg/dL (8.5-10.1); CARBON DIOXIDE,CO2 23 mmol/L (21-32); CHLORIDE,CL 98 mmol/L (100-108); EST CRCL DRUG DOSING (CG) 47.42 mL/min; ESTIMATED GFR 39 mL/min (>60); GLUCOSE RANDOM 241 mg/dL (74-106); PROTEIN TOTAL,TP 8.2 g/dL (6.4-8.2); SODIUM,NA 136 mmol/L (140-148)
[2023-06-28 08:19] LABS: LACTIC ACID 2.3 mmol/L (0.4-2.0)
[2023-06-28] MEDS: Sodium Chloride 0.9% 1,000 ML IV ONE ×2 (08:54→10:26)
[2023-06-28] MEDS ORDERED: Acetaminophen 1,000 MG in Premix Bag 1 BAG IV ONE (09:00)
[2023-06-28] MEDS: Acetaminophen 1,000 MG in Premix Bag 1 BAG IV ONE (09:08)
[2023-06-28] MEDS: cefTRIAXone 1 GM in Sodium Chloride 0.9% 50 ML IV ONE ×2 (09:24→11:05)
== END 2023-06-28 12:04 | disposition home or self-care (01) ==
LOC: JP.ED 07:02
DX: A41.9 Sepsis, unspecified organism (principal); R65.21 Severe sepsis with septic shock; N17.9 Acute kidney failure, unspecified; N18.9 Chronic kidney disease, unspecified; L03.115 Cellulitis of right lower limb; I12.9 Hypertensive chronic kidney disease with stage 1 through stage 4 chronic kidney disease, or unspecified chronic kidney disease; E11.22 Type 2 diabetes mellitus with diabetic chronic kidney disease; E78.00 Pure hypercholesterolemia, unspecified; E11.42 Type 2 diabetes mellitus with diabetic polyneuropathy; I25.10 Atherosclerotic heart disease of native coronary artery without angina pectoris; Z79.82 Long term (current) use of aspirin; Z79.899 Other long term (current) drug therapy; Z86.19 Personal history of other infectious and parasitic diseases; Z86.16 Personal history of COVID-19; Z95.1 Presence of aortocoronary bypass graft; Z89.431 Acquired absence of right foot; Z87.891 Personal history of nicotine dependence
CPT/HCPCS: 36415; 80053; 83605; 85025; 86140; 87040; 96365; 96367; 99284; J0131; J0696; J3490; J7030; 87077; 87186

== ENCOUNTER 2023-06-30 13:13 | Emergency (ER) | payer OTHER ==
[2023-06-30 14:18] LABS: BASOPHILS ABSOLUTE AUTO 0.03 K/uL (0.00-0.10); BASOPHILS PERCENT AUTO 0.4 % (0.1-1.3); EOSINOPHILS ABSOLUTE AUTO 0.19 K/uL (0.00-0.40); EOSINOPHILS PERCENT AUTO 2.2 % (0.0-5.4); HEMATOCRIT 42.7 % (38.4-49.7); HEMOGLOBIN 14.4 g/dL (12.9-16.9); IMMATURE GRAN ABSOLUTE AUTO 0.04 K/uL (0.00-0.23); IMMATURE GRAN PERCENT AUTO 0.5 % (0.0-0.7); LYMPHOCYTES ABSOLUTE AUTO 0.86 K/uL (0.8-3.3); LYMPHOCYTES PERCENT AUTO 10.2 % (11.4-47.7); MEAN CORPUSCULAR HEMOGLOBIN 28.6 pg (31.6-35.5); MEAN CORPUSCULAR HGB CONC 33.7 g/dL (31.6-35.5); MEAN CORPUSCULAR VOLUME 84.7 fL (81.4-99.0); MONOCYTES PERCENT AUTO 7.1 % (3.3-12.6); NEUTROPHILS ABSOLUTE AUTO 6.75 K/uL (1.0-7.6); NEUTROPHILS PERCENT AUTO 79.6 % (40.0-78.1); PLATELET COUNT,PLT 174 K/uL (130-375); RED BLOOD CELL COUNT 5.04 M/uL (4.14-5.76); WHITE BLOOD CELL COUNT,WBC 8.5 K/uL (3.2-11.0)
[2023-06-30] MEDS: Sodium Chloride 0.9% 1,000 ML IV ONE (14:20)
[2023-06-30 14:38] LABS: A/G RATIO 0.5 (1.2-2.2); ALANINE AMINOTRANSFERASE,ALT 37 U/L (12-78); ALBUMIN 2.4 g/dL (3.4-5.0); ALKALINE PHOSPHATASE 92 U/L (46-116); ASPARTATE AMNIOTRANSFERASE,AST 27 U/L (15-37); BLOOD UREA NITROGEN,BUN 17 mg/dL (7-18); CALCIUM 9.6 mg/dL (8.5-10.1); CARBON DIOXIDE,CO2 26 mmol/L (21-32); CHLORIDE,CL 102 mmol/L (100-108); CREATININE 1.5 mg/dL (0.8-1.3); EST CRCL DRUG DOSING (CG) 63.23 mL/min; ESTIMATED GFR 56 mL/min (>60); GLUCOSE RANDOM 166 mg/dL (74-106); POTASSIUM,K 3.3 mmol/L (3.6-5.2); PROTEIN TOTAL,TP 7.3 g/dL (6.4-8.2); SODIUM,NA 139 mmol/L (140-148)
[2023-06-30 14:41] LABS: ANION GAP 14.3 mmol/L (5.0-14.0)
[2023-06-30] MEDS: Ondansetron 4 MG/2 ML SDV IVPUSH ONE (18:21)
== END 2023-06-30 20:40 ==
LOC: JP.ED 13:13
DX: A41.9 Sepsis, unspecified organism (principal); R65.21 Severe sepsis with septic shock; N17.9 Acute kidney failure, unspecified; M86.071 Acute hematogenous osteomyelitis, right ankle and foot; E11.621 Type 2 diabetes mellitus with foot ulcer; L97.519 Non-pressure chronic ulcer of other part of right foot with unspecified severity; I25.10 Atherosclerotic heart disease of native coronary artery without angina pectoris; E78.00 Pure hypercholesterolemia, unspecified; I10 Essential (primary) hypertension; E11.21 Type 2 diabetes mellitus with diabetic nephropathy; E11.42 Type 2 diabetes mellitus with diabetic polyneuropathy; Z95.1 Presence of aortocoronary bypass graft; Z86.19 Personal history of other infectious and parasitic diseases; Z86.16 Personal history of COVID-19; Z89.431 Acquired absence of right foot; Z79.82 Long term (current) use of aspirin; Z79.899 Other long term (current) drug therapy
CPT/HCPCS: 36415; 80053; 85025; 96361; 96365; 96366; 96375; 99284; J2405; J3370; J7030; J7050

== ENCOUNTER 2023-07-02 12:12 | Inpatient (IN) | payer OTHER ==
[2023-07-02] MEDS ORDERED: Glucose Gel 15 GM in 37.5 GM Tube PO PRN (12:25)
[2023-07-02] MEDS ORDERED: 50% Dextrose in Water 50 ML Syringe IV PRN (12:25)
[2023-07-02] MEDS ORDERED: Polyethylene Glycol 3350 Powder 17 GM Packet PO PRN (12:27)
[2023-07-02] MEDS ORDERED: Sodium Chloride 0.9% 10 ML Syringe FLUSH PRN (12:27)
[2023-07-02] MEDS ORDERED: oxyCODONE 5 MG Tab PO PRN (12:27)
[2023-07-02] MEDS ORDERED: Ondansetron 4 MG/2 ML SDV IV PRN (12:27)
[2023-07-02] MEDS ORDERED: DAPTOmycin 750 MG in Sodium Chloride 0.9% 50 ML IV SCH (12:30)
[2023-07-02] MEDS: Heparin Sodium 5,000 Units/ML Vial SUBCUT SCH (13:31)
[2023-07-02] MEDS ORDERED: Non-Formulary Medication 1 Each (Semaglutide [Ozempic] 1 MG/0.75 ML Pen.Injctr) SQ SCH (14:00)
[2023-07-02] MEDS: Gabapentin 300 MG Cap PO SCH (14:32)
[2023-07-02] MEDS: SODIUM CHLORIDE 0.9% IV SCH (16:15)
[2023-07-02] MEDS: DAPTOMYCIN IV SCH (16:15)
[2023-07-02] MEDS: Insulin Lispro 100 Unit/ML 3 ML KwikPen SUBCUT SCH (16:47)
[2023-07-02 17:31] LABS: CORONAVIRUS COVID-19 NAA NEGATIVE (NEGATIVE); INFLUENZA A NAA NEGATIVE (NEGATIVE); INFLUENZA B NAA NEGATIVE (NEGATIVE); RESPIRATORY SYNCYTIAL VIR NAA NEGATIVE (NEGATIVE)
[2023-07-02] MEDS: Sodium Chloride 0.9% 1,000 ML IV SCH (23:58)
[2023-07-03 05:19] LABS: HEMATOCRIT 41.5 % (38.4-49.7); HEMOGLOBIN 13.7 g/dL (12.9-16.9); MEAN CORPUSCULAR HEMOGLOBIN 28.4 pg (31.6-35.5); MEAN CORPUSCULAR VOLUME 86.1 fL (81.4-99.0); RED BLOOD CELL COUNT 4.82 M/uL (4.14-5.76); WHITE BLOOD CELL COUNT,WBC 7.3 K/uL (3.2-11.0)
[2023-07-03 05:39] LABS: ANION GAP 9.4 mmol/L (5.0-14.0); CALCIUM 9.3 mg/dL (8.5-10.1); CREATININE 1.3 mg/dL (0.8-1.3); EST CRCL DRUG DOSING (CG) 72.96 mL/min; MAGNESIUM 1.5 mg/dL (1.8-2.4); POTASSIUM,K 3.6 mmol/L (3.6-5.2)
[2023-07-03] MEDS ORDERED: Midazolam 1 MG/ML 2 ML SDV ONE (07:33)
[2023-07-03] MEDS ORDERED: Propofol 200 MG/20 ML SDV ONE ×3 (07:33→09:18)
[2023-07-03] MEDS ORDERED: fentaNYL 100 MCG/2 ML SDV ONE ×2 (07:33→09:51)
[2023-07-03] MEDS: Sodium Chloride 0.9% 500 ML IV ONE (07:38)
[2023-07-03] MEDS ORDERED: Spironolactone 25 MG Tab PO SCH (09:00)
[2023-07-03] MEDS ORDERED: Non-Formulary Medication 1 Each (Metoprolol Succinate [Metoprolol Succinate] 100 MG Tab.Er PO SCH (09:00)
[2023-07-03] MEDS ORDERED: Naloxone 0.4 MG/ML SDV IVPUSH PRN (09:00)
[2023-07-03] MEDS ORDERED: Sodium Chloride 0.9% 10 ML ONE (09:51)
[2023-07-03] MEDS ORDERED: Bupivacaine 0.5% 50 ML MDV ONE (10:04)
[2023-07-03] MEDS ORDERED: Lidocaine 1% with EPINEPHrine 1:100,000 50 ML MDV ONE (10:04)
[2023-07-03] MEDS ORDERED: Zolpidem 5 MG Tab PO PRN (10:10)
[2023-07-03] MEDS ORDERED: diphenhydrAMINE 50 MG/ML SDV IVPUSH PRN ×2 (10:10→16:00)
[2023-07-03] MEDS ORDERED: Metoclopramide 10 MG/2 ML SDV IV PRN (10:10)
[2023-07-03] MEDS ORDERED: Benzocaine/Cetylpyridinium/Menthol Lozenge MUCMEM PRN (10:10)
[2023-07-03] MEDS ORDERED: Bisacodyl 5 MG Tab PO PRN (10:10)
[2023-07-03] MEDS ORDERED: Sennosides/Docusate Sodium 50-8.6 MG Tab PO PRN (10:10)
[2023-07-03] MEDS: fentaNYL 2,500 MCG in Sodium Chloride 0.9% 200 ML EPIDUR SCH (11:17)
[2023-07-03] MEDS: Docusate Sodium 100 MG Cap PO SCH (11:21)
[2023-07-03] MEDS: Magnesium Oxide 400 MG Tab PO SCH (11:21)
[2023-07-03] MEDS: Furosemide 20 MG Tab PO SCH (11:21)
[2023-07-03] MEDS: Rosuvastatin 10 MG Tab PO SCH (11:21)
[2023-07-03] MEDS: Allopurinol 100 MG Tab PO SCH (11:22)
[2023-07-03] MEDS: Metoprolol Succinate 50 MG Tab.ER PO SCH (11:22)
[2023-07-03] MEDS: Aspirin 81 MG Tab.Chew PO SCH (11:22)
[2023-07-03] MEDS: Lisinopril 20 MG Tab PO SCH (11:22)
[2023-07-03] MEDS: amLODIPine 5 MG Tab PO SCH (11:23)
[2023-07-03] MEDS: Magnesium Sulfate/Water 2 GM in Premix Bag 1 BAG IV SCH (11:23)
[2023-07-03] MEDS: Acetaminophen 325 MG Tab PO PRN (13:32)
[2023-07-03] MEDS ORDERED: Naloxone 0.4 MG/ML SDV IV PRN (16:00)
[2023-07-04 04:57] LABS: BASOPHILS ABSOLUTE AUTO 0.04 K/uL (0.00-0.10); BASOPHILS PERCENT AUTO 0.5 % (0.1-1.3); EOSINOPHILS ABSOLUTE AUTO 0.15 K/uL (0.00-0.40); EOSINOPHILS PERCENT AUTO 1.9 % (0.0-5.4); HEMATOCRIT 38.8 % (38.4-49.7); HEMOGLOBIN 12.6 g/dL (12.9-16.9); IMMATURE GRAN ABSOLUTE AUTO 0.07 K/uL (0.00-0.23); IMMATURE GRAN PERCENT AUTO 0.9 % (0.0-0.7); LYMPHOCYTES ABSOLUTE AUTO 1.77 K/uL (0.8-3.3); LYMPHOCYTES PERCENT AUTO 22.3 % (11.4-47.7); MEAN CORPUSCULAR HEMOGLOBIN 28.4 pg (31.6-35.5); MEAN CORPUSCULAR HGB CONC 32.5 g/dL (31.6-35.5); MEAN CORPUSCULAR VOLUME 87.4 fL (81.4-99.0); MONOCYTES ABSOLUTE AUTO 0.67 K/uL (0.20-0.90); MONOCYTES PERCENT AUTO 8.4 % (3.3-12.6); NEUTROPHILS ABSOLUTE AUTO 5.24 K/uL (1.0-7.6); PLATELET COUNT,PLT 298 K/uL (130-375); RED BLOOD CELL COUNT 4.44 M/uL (4.14-5.76); WHITE BLOOD CELL COUNT,WBC 7.9 K/uL (3.2-11.0)
[2023-07-04 05:23] LABS: CALCIUM 8.7 mg/dL (8.5-10.1); CREATININE 1.2 mg/dL (0.8-1.3); EST CRCL DRUG DOSING (CG) 79.04 mL/min; MAGNESIUM 2.5 mg/dL (1.8-2.4)
[2023-07-04] MEDS: Pantoprazole 40 MG Tab.CR PO SCH (08:07)
[2023-07-04] MEDS ORDERED: Enoxaparin 40 MG/0.4 ML Syringe SUBCUT SCH (09:00)
[2023-07-04] MEDS: OZEMPIC SUBCUT SCH (09:06)
[2023-07-04] MEDS: Acetaminophen 1,000 MG in Premix Bag 1 BAG IV SCH (14:10)
[2023-07-04] MEDS: oxyCODONE 5 MG Tab PO PRN ×2 (16:15→19:55)
[2023-07-05 05:59] LABS: HEMATOCRIT 35.7 % (38.4-49.7); HEMOGLOBIN 11.7 g/dL (12.9-16.9); MEAN CORPUSCULAR HEMOGLOBIN 28.6 pg (31.6-35.5); MEAN CORPUSCULAR HGB CONC 32.8 g/dL (31.6-35.5); MEAN CORPUSCULAR VOLUME 87.3 fL (81.4-99.0); RED BLOOD CELL COUNT 4.09 M/uL (4.14-5.76); WHITE BLOOD CELL COUNT,WBC 7.7 K/uL (3.2-11.0)
[2023-07-05 06:23] LABS: ANION GAP 10.1 mmol/L (5.0-14.0); CALCIUM 8.7 mg/dL (8.5-10.1); CREATININE 1.3 mg/dL (0.8-1.3); EST CRCL DRUG DOSING (CG) 72.96 mL/min; MAGNESIUM 1.9 mg/dL (1.8-2.4); POTASSIUM,K 4.1 mmol/L (3.6-5.2)
[2023-07-05] MEDS ORDERED: Enoxaparin 40 MG/0.4 ML Syringe SUBCUT SCH (09:00)
[2023-07-05] MEDS ORDERED: Acetaminophen/oxyCODONE 325-5 MG Tab PO PRN (10:10)
[2023-07-05] MEDS: Enoxaparin 40 MG/0.4 ML Syringe SUBCUT SCH (17:06)
[2023-07-05] MEDS: Acetaminophen 500 MG Tab PO PRN (20:37)
[2023-07-06 05:10] LABS: HEMATOCRIT 34.9 % (38.4-49.7); HEMOGLOBIN 11.4 g/dL (12.9-16.9); MEAN CORPUSCULAR HEMOGLOBIN 28.6 pg (31.6-35.5); MEAN CORPUSCULAR HGB CONC 32.7 g/dL (31.6-35.5); MEAN CORPUSCULAR VOLUME 87.5 fL (81.4-99.0); RED BLOOD CELL COUNT 3.99 M/uL (4.14-5.76); WHITE BLOOD CELL COUNT,WBC 7.9 K/uL (3.2-11.0)
[2023-07-06 05:34] LABS: CALCIUM 8.9 mg/dL (8.5-10.1); CREATININE 1.2 mg/dL (0.8-1.3); EST CRCL DRUG DOSING (CG) 79.04 mL/min; MAGNESIUM 1.8 mg/dL (1.8-2.4); PHOSPHORUS 3.3 mg/dL (2.5-4.9)
[2023-07-07 05:43] LABS: HEMATOCRIT 35.9 % (38.4-49.7); HEMOGLOBIN 11.6 g/dL (12.9-16.9); MEAN CORPUSCULAR HEMOGLOBIN 28.2 pg (31.6-35.5); MEAN CORPUSCULAR HGB CONC 32.3 g/dL (31.6-35.5); MEAN CORPUSCULAR VOLUME 87.1 fL (81.4-99.0); RED BLOOD CELL COUNT 4.12 M/uL (4.14-5.76); WHITE BLOOD CELL COUNT,WBC 8.7 K/uL (3.2-11.0)
[2023-07-07 05:59] LABS: CALCIUM 9.2 mg/dL (8.5-10.1); CREATININE 1.5 mg/dL (0.8-1.3); EST CRCL DRUG DOSING (CG) 63.23 mL/min; MAGNESIUM 1.9 mg/dL (1.8-2.4); PHOSPHORUS 3.8 mg/dL (2.5-4.9); POTASSIUM,K 4.2 mmol/L (3.6-5.2)
[2023-07-07 06:00] LABS: ANION GAP 14.2 mmol/L (5.0-14.0)
[2023-07-08 04:52] LABS: HEMATOCRIT 36.8 % (38.4-49.7); HEMOGLOBIN 12.1 g/dL (12.9-16.9); MEAN CORPUSCULAR HEMOGLOBIN 28.5 pg (31.6-35.5); MEAN CORPUSCULAR HGB CONC 32.9 g/dL (31.6-35.5); MEAN CORPUSCULAR VOLUME 86.8 fL (81.4-99.0); RED BLOOD CELL COUNT 4.24 M/uL (4.14-5.76); WHITE BLOOD CELL COUNT,WBC 9.7 K/uL (3.2-11.0)
[2023-07-08 05:16] LABS: CALCIUM 9.7 mg/dL (8.5-10.1); CREATININE 1.6 mg/dL (0.8-1.3); EST CRCL DRUG DOSING (CG) 59.28 mL/min; MAGNESIUM 1.8 mg/dL (1.8-2.4); PHOSPHORUS 3.8 mg/dL (2.5-4.9); POTASSIUM,K 4.4 mmol/L (3.6-5.2)
[2023-07-08 05:36] LABS: ANION GAP 11.4 mmol/L (5.0-14.0)
[2023-07-09 06:02] LABS: HEMATOCRIT 36.4 % (38.4-49.7); HEMOGLOBIN 11.8 g/dL (12.9-16.9); MEAN CORPUSCULAR HEMOGLOBIN 28.2 pg (31.6-35.5); MEAN CORPUSCULAR HGB CONC 32.4 g/dL (31.6-35.5); MEAN CORPUSCULAR VOLUME 87.1 fL (81.4-99.0); RED BLOOD CELL COUNT 4.18 M/uL (4.14-5.76); WHITE BLOOD CELL COUNT,WBC 7.9 K/uL (3.2-11.0)
[2023-07-09 06:26] LABS: CALCIUM 9.5 mg/dL (8.5-10.1); CREATININE 1.4 mg/dL (0.8-1.3); EST CRCL DRUG DOSING (CG) 67.75 mL/min; POTASSIUM,K 4.4 mmol/L (3.6-5.2)
[2023-07-09 06:28] LABS: ANION GAP 11.4 mmol/L (5.0-14.0)
== END 2023-07-09 10:47 | DRG 617 ==
LOC: JP.ICU 12:12 → JP.MS 07-07 10:07
PROVIDERS: ADMIT Hospitalist; ATTEND Internal Medicine
PROC: 0Y6H0Z1 Detachment at Right Lower Leg, High, Open Approach (ICD-10-PCS; principal; 2023-07-03 07:30)
PROC: 02HV33Z Insertion of Infusion Device into Superior Vena Cava, Percutaneous Approach (ICD-10-PCS; 2023-07-04)
DX: E11.69 Type 2 diabetes mellitus with other specified complication (principal); M86.171 Other acute osteomyelitis, right ankle and foot; R78.81 Bacteremia; E11.621 Type 2 diabetes mellitus with foot ulcer; L97.519 Non-pressure chronic ulcer of other part of right foot with unspecified severity; E11.51 Type 2 diabetes mellitus with diabetic peripheral angiopathy without gangrene; I25.10 Atherosclerotic heart disease of native coronary artery without angina pectoris; B95.62 Methicillin resistant Staphylococcus aureus infection as the cause of diseases classified elsewhere; I12.9 Hypertensive chronic kidney disease with stage 1 through stage 4 chronic kidney disease, or unspecified chronic kidney disease; N18.31 Chronic kidney disease, stage 3a; E11.22 Type 2 diabetes mellitus with diabetic chronic kidney disease; E78.00 Pure hypercholesterolemia, unspecified; H54.7 Unspecified visual loss; E11.42 Type 2 diabetes mellitus with diabetic polyneuropathy; E11.21 Type 2 diabetes mellitus with diabetic nephropathy; G47.30 Sleep apnea, unspecified; Z89.431 Acquired absence of right foot; Z95.1 Presence of aortocoronary bypass graft; Z79.82 Long term (current) use of aspirin; Z79.899 Other long term (current) drug therapy; Z86.16 Personal history of COVID-19
CPT/HCPCS: 0241U; 36415; 80048; 82550; 82947; 83735; 84100; 85025; 85027; 87040; 88307; 88311; 93308; 97110-GP; 97116-GP; 97161-GP; 97165-GO; 97530-GP; 97535-GO; 99223; 99232; 99239; A9270-GY; C1751; C1776; J0131; J0665; J0878; J1644; J1650; J1815; J2250; J2704; J3010; J3475; J3490; J7030; J7040; J7050

== ENCOUNTER 2023-08-05 17:25 | Emergency (ER) | payer OTHER ==
[2023-08-05] MEDS ORDERED: Naloxone 0.4 MG/ML SDV IVPUSH PRN (18:08)
[2023-08-05 18:30] LABS: BASOPHILS ABSOLUTE AUTO 0.05 K/uL (0.00-0.10); BASOPHILS PERCENT AUTO 0.5 % (0.1-1.3); EOSINOPHILS ABSOLUTE AUTO 0.19 K/uL (0.00-0.40); EOSINOPHILS PERCENT AUTO 2.1 % (0.0-5.4); HEMATOCRIT 42.3 % (38.4-49.7); HEMOGLOBIN 14.4 g/dL (12.9-16.9); IMMATURE GRAN ABSOLUTE AUTO 0.02 K/uL (0.00-0.23); IMMATURE GRAN PERCENT AUTO 0.2 % (0.0-0.7); LYMPHOCYTES ABSOLUTE AUTO 2.84 K/uL (0.8-3.3); LYMPHOCYTES PERCENT AUTO 31.2 % (11.4-47.7); MEAN CORPUSCULAR HEMOGLOBIN 29.3 pg (31.6-35.5); MONOCYTES ABSOLUTE AUTO 0.51 K/uL (0.20-0.90); MONOCYTES PERCENT AUTO 5.6 % (3.3-12.6); NEUTROPHILS ABSOLUTE AUTO 5.49 K/uL (1.0-7.6); NEUTROPHILS PERCENT AUTO 60.4 % (40.0-78.1); PLATELET COUNT,PLT 276 K/uL (130-375); RED BLOOD CELL COUNT 4.92 M/uL (4.14-5.76); WHITE BLOOD CELL COUNT,WBC 9.1 K/uL (3.2-11.0)
[2023-08-05] MEDS: HYDROmorphone 0.5 MG/0.5 ML Syringe IVPUSH ONE (20:22)
[2023-08-05] MEDS: Sodium Chloride 0.9% 1,000 ML IV SCH (20:29)
[2023-08-05] MEDS: Lidocaine 1% with EPINEPHrine 1:100,000 20 ML MDV INJECT ONE (21:33)
[2023-08-05] MEDS: HYDROmorphone 1 MG/ML Syringe IVPUSH ONE (21:35)
== END 2023-08-05 21:53 | disposition home or self-care (01) ==
LOC: JP.ED 17:25
DX: T81.31XA Disruption of external operation (surgical) wound, not elsewhere classified, initial encounter (principal); I25.10 Atherosclerotic heart disease of native coronary artery without angina pectoris; E78.00 Pure hypercholesterolemia, unspecified; I10 Essential (primary) hypertension; E11.21 Type 2 diabetes mellitus with diabetic nephropathy; E11.40 Type 2 diabetes mellitus with diabetic neuropathy, unspecified; Z86.19 Personal history of other infectious and parasitic diseases; Z79.82 Long term (current) use of aspirin; Z79.899 Other long term (current) drug therapy; Z86.16 Personal history of COVID-19; Z95.1 Presence of aortocoronary bypass graft; Z89.511 Acquired absence of right leg below knee
CPT/HCPCS: 12004; 36415; 70450; 85025; 96361; 96374; 96376; 99284; J1170; J7030

== ENCOUNTER 2025-02-01 19:16 | Emergency (ER) | payer SELFPAY ==
[2025-02-01] MEDS ORDERED: Sodium Chloride 0.9% 10 ML Syringe FLUSH PRN ×2 (19:25→19:35)
[2025-02-01] MEDS ORDERED: Iopamidol 612 MG/ML 100 ML Bottle IV PRN (19:35)
[2025-02-01 20:21] LABS: APPEARANCE,URINE CLEAR (CLEAR); GLUCOSE,URINE 500 mg/dL (NEGATIVE); OCCULT BLOOD,URINE SMALL (NEGATIVE)
[2025-02-01 20:21] LABS: BASE EXCESS ARTERIAL -7.3 mm/L; BASOPHILS ABSOLUTE AUTO 0.03 K/uL (0.00-0.10); BASOPHILS PERCENT AUTO 0.2 % (0.1-1.3); BICARBONATE,ARTERIAL 13.3 mmol/L (22.0-26.0); EOSINOPHILS PERCENT AUTO 0.1 % (0.0-5.4); IMMATURE GRAN ABSOLUTE AUTO 0.16 K/uL (0.00-0.23); IMMATURE GRAN PERCENT AUTO 1.0 % (0.0-0.7); LYMPHOCYTES ABSOLUTE AUTO 1.48 K/uL (0.8-3.3); LYMPHOCYTES PERCENT AUTO 9.0 % (11.4-47.7); MONOCYTES ABSOLUTE AUTO 0.78 K/uL (0.20-0.90); MONOCYTES PERCENT AUTO 4.7 % (3.3-12.6); NEUTROPHILS ABSOLUTE AUTO 14.05 K/uL (1.0-7.6); NEUTROPHILS PERCENT AUTO 85.0 % (40.0-78.1); O2 SATURATION ARTERIAL 97.6 % (95.0-98.0); OXYHEMOGLOBIN 94.8 %; PLATELET COUNT,PLT 225 K/uL (130-375); PO2 ARTERIAL 95.1 mmHg (75.0-100.0); RED BLOOD CELL COUNT 5.12 M/uL (4.14-5.76); TOTAL HEMOGLOBIN 16.0 g/dL (13.5-18.0); WHITE BLOOD CELL COUNT,WBC 16.5 K/uL (3.2-11.0)
[2025-02-01 20:22] LABS: EOSINOPHILS ABSOLUTE AUTO 0.01 K/uL (0.00-0.40)
[2025-02-01 20:25] LABS: PCO2 ARTERIAL 17.8 mmHg (35.0-42.0)
[2025-02-01 20:48] LABS: AMPHETAMINES SCREEN, URINE NEGATIVE (NEGATIVE); METHADONE SCREEN, URINE NEGATIVE (NEGATIVE); METHAMPHETAMINES SCREEN, URINE NEGATIVE (NEGATIVE); OXYCODONE SCREEN,URINE NEGATIVE (NEGATIVE); PROPOXYPHENE SCREEN,URINE NEGATIVE (NEGATIVE); SQUAMOUS EPITHELIAL CELLS,UR RARE /HPF; THC SCREEN,URINE 50 NG/ML NEGATIVE (NEGATIVE); UROTHELIAL CELLS,URINE NOT SEEN /HPF
[2025-02-01 20:55] LABS: A/G RATIO 0.6 (1.2-2.2); BILIRUBIN TOTAL 1.9 mg/dL (0.2-1.0); CHLORIDE,CL 103 mmol/L (100-108); CREATININE 2.6 mg/dL (0.8-1.3); EST CRCL DRUG DOSING (CG) 35.70 mL/min; ESTIMATED GFR 28 mL/min (>60); POTASSIUM,K 4.4 mmol/L (3.6-5.2); PROTEIN TOTAL,TP 6.3 g/dL (6.4-8.2); SODIUM,NA 139 mmol/L (140-148)
[2025-02-01 21:10] LABS: ALANINE AMINOTRANSFERASE,ALT 2588 U/L (12-78); ASPARTATE AMNIOTRANSFERASE,AST 1343 U/L (15-37)
[2025-02-01 21:11] LABS: BLOOD UREA NITROGEN,BUN 99 mg/dL (7-18); CARBON DIOXIDE,CO2 15 mmol/L (21-32); GLUCOSE RANDOM 517 mg/dL (74-106)
[2025-02-01] MEDS ORDERED: 50% Dextrose in Water 50 ML Syringe IVPUSH PRN (21:43)
[2025-02-01] MEDS: Insulin Lispro 100 Unit/ML 3 ML KwikPen SUBCUT ONE (22:22)
== END 2025-02-02 01:03 ==
LOC: JP.ED 19:16
DX: A41.9 Sepsis, unspecified organism (principal); I63.9 Cerebral infarction, unspecified; I70.212 Atherosclerosis of native arteries of extremities with intermittent claudication, left leg; E11.65 Type 2 diabetes mellitus with hyperglycemia; I10 Essential (primary) hypertension; E78.00 Pure hypercholesterolemia, unspecified; Z79.82 Long term (current) use of aspirin; Z79.899 Other long term (current) drug therapy; Z86.16 Personal history of COVID-19
CPT/HCPCS: 36410; 36415; 36600; 36680; 51702; 70450; 71260; 72125; 74177; 75635; 76377; 80053; 80305; 80307; 81001; 82009; 82550; 82803; 82947; 83605; 83735; 84484; 85025; 85651; 86140; 87040; 87077; 87186; 93005; 96361; 96365; 96366; 96367; 99285; J0696; J1815; J3373; J7030; J7040; A9270-GY